=== PATIENT | male | born 1985 | race Caucasian/White ===

== ENCOUNTER 2019-04-04 09:09 | Emergency (ER) | payer OTHER, MEDICAID, SELFPAY ==
[2019-04-04 09:15] VITALS: BP 113/79; PULSE 65; RESP 16; TEMP 35.8; O2SAT 97; BMI 21.9
--- NOTE | 2019-04-04 09:51 | ED.SKABFB ---
HPI - Skin/Abscess/Foreign Bdy General Chief complaint: Skin/Abscess/Foreign Body Stated complaint: welts on limbs,ankles,shoulders/sev itch x2 days Time Seen by Provider: 04/04/19 09:51 Source: patient Mode of arrival: Ambulatory Limitations: no limitations History of Present Illness HPI narrative: This is a 33-year-old male comes to the emergency department with complaint of welts on his, ankle shoulders that is been itchy for several days. He states symptoms started about . Several more spots have shown up. He states they are very itchy. He does not know what the cause is. He has not any fevers, no chills, no chest pain shortness of breath no nausea vomiting no urinary or GI symptoms. His significant other whom he lives with has not had any symptoms. He has not had any new soaps, exposures. 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 Patient states they are just little red itchy bumps. Related Data Previous Rx's Medication Instructions Recorded hydroxyzine HCl 25 mg PO QID PRN #20 tab 04/04/19 Allergies Allergy/AdvReac Type Severity Reaction Status Date / Time venom-honey bee Allergy Unknown Unverified 09/18/17 13:04 [BEE VENOM (HONEY BEE)] Review of Systems Review of Systems ROS Unobtainable: All systems reviewed & are unremarkable except as noted in HPI and below Exam Narrative Exam Narrative: GENERAL: Alert and oriented x three, thin, well-appearing male in no acute distress. HEENT: Head normocephalic, atraumatic, EOMI, pupils reactive, face symmetric, moist mucous membranes NECK: Supple, full range of motion CARDIOVASCULAR: Regular rate and rhythm without murmurs, rubs or gallops. RESPIRATORY: Breath sounds equal bilaterally, no wheezes rales or rhonchi. ABDOMEN: Soft, nontender. Normoactive bowel sounds all 4 quadrants. No guarding or rebound, rigidity, no mass : No CVA tenderness EXTREMITIES: Normal range of motion, no clubbing or edema. Neurovascularly intact NEUROLOGICAL: Cranial nerves II through XII grossly intact. Moving all extremities SKIN: Warm, dry, no petechiae, patient has several erythematous bumps on his Initial Vital Signs Initial Vital Signs: Vital Signs Temperature 96.5 F L 04/04/19 09:15 Pulse Rate 65 04/04/19 09:15 Respiratory Rate 16 04/04/19 09:15 Blood Pressure 113/79 04/04/19 09:15 Pulse Oximetry 97 04/04/19 09:15 Course Vital Signs Vital signs: Vital Signs - 8 hr 04/04/19 09:15 Temperature 96.5 F L Pulse Rate 65 Respiratory Rate 16 Blood Pressure 113/79 Pulse Oximetry 97 MDM - Skin/Abscess/Foreign Bdy MDM Narrative Medical decision making narrative: Patient appears to have some sort of bites in terms of his rash. 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 Discussed plan for watchful waiting can try hydroxyzine and started Benadryl for the itching we discussed reasons to return emergently and signs and symptoms to watch for. He has already established a visit with primary care on May 13 so his symptoms have not resolved he can follow up with them. Discharge Plan Departure Patient Disposition: Home Clinical Impression: Rash Discharge Date/Time: 04/04/19 10:35 Instructions: DI for Rash Activity Restrictions/Additional Instructions: Follow-up with primary care at your office visit on May 13 if your symptoms have not completely resolved. You may take hydroxyzine as prescribed. This medication can make you sleepy, do not take it with Benadryl. Return to the emergency department for fevers greater 100.4 F, rapidly worsening rash, chest pain, shortness of breath, passing out, persistent vomiting or other new or concerning symptoms. Prescriptions: New hydroxyzine HCl 25 mg tablet 25 mg PO QID PRN (Reason: itching) Qty: 20 RF: 0 Referrals: Cathy Berry ARNP [Primary Care Provider] -
== END 2019-04-04 10:35 | disposition home or self-care (01) ==
PROVIDERS: Emergency Provider Emergency Medicine; PCP Nurse Practitioner
DX: R21 Rash and other nonspecific skin eruption (principal)
CPT/HCPCS: 99282; 99283

== ENCOUNTER 2019-04-24 23:40 | Emergency (ER) | payer OTHER, MEDICAID, SELFPAY ==
--- NOTE | 2019-04-24 23:32 | DI.CT.S_ITS ---
PROCEDURE: CT CERVICAL SPINE WO CON INDICATIONS: trauma TECHNIQUE: Noncontrast 3 mm thick sections acquired from the skull base to the T4 level. Sagittal and coronal reformats were then constructed. For radiation dose reduction, the following was used: automated exposure control, adjustment of mA and/or kV according to patient size. COMPARISON: [facility], CT, C-SPINE WITHOUT CONTRAST, 01/28/2015, 23:32. FINDINGS: Image quality: Diagnostic. Bones: There is a nondisplaced fracture identified involving the right basion, which extends into the foramen magnum and also into the occipital condyle on the right. No additional fractures are evident. The C1 arch appears to be intact. The vertebral body heights throughout the cervical spine are well-maintained. The odontoid is intact. No suspicious osseous lesions or significant degenerative changes are appreciated. Soft tissues: No prevertebral soft tissue swelling. The imaged overlying soft tissues of the neck are within normal limits. IMPRESSION: Nondisplaced right basion fracture with extension into the right occipital condyle. Note: The preliminary report provided by [facility] is concordant with the final report. Dictated by: Bam Campa M.D. on 04/25/2019 at 7:23 Approved by: Bam Campa M.D. on 04/25/2019 at 7:27
--- NOTE | 2019-04-24 23:32 | DI.RAD.S_ITS ---
PROCEDURE: XR CHEST 1V INDICATIONS: intubate TECHNIQUE: One view of the chest was acquired. COMPARISON: None. FINDINGS: Surgical changes and devices: An endotracheal tube is seen along the upper aspect of the airway that is positioned approximately 9.6 cm above the level of the angi. This may be exaggerated by technique. Lungs and pleura: Mild increase attenuation is identified within the left suprahilar region and lobe left suprahilar/mid hilar region on the right. No effusion or definite pneumothorax is appreciated. Mediastinum: Mediastinal contours appear normal. Heart size is normal. Bones and chest wall: No suspicious bony lesions. Overlying soft tissues appear unremarkable. IMPRESSION: Increased attenuation within the perihilar regions (record on left) may represent mild pulmonary edema versus contusion. Dictated by: Bam Campa M.D. on 04/24/2019 at 23:15 Approved by: Bam Campa M.D. on 04/24/2019 at 23:17
--- NOTE | 2019-04-24 23:32 | DI.CT.S_ITS ---
PROCEDURE: CT CHEST ABD PEL W CON INDICATIONS: trauma TECHNIQUE: After the administration of intravenous contrast, 5 mm thick sections acquired from the lung apices to the symphysis. 2.5 mm thick coronal and sagittal reformats were acquired. Additional 7 mm thick coronal maximum intensity projection (MIP) reformats acquired through the lungs. Optional 10-minute delayed imaging may be performed from the kidneys to the bladder. For radiation dose reduction, the following was used: automated exposure control, adjustment of mA and/or kV according to patient size. COMPARISON: None. FINDINGS: Image quality: Diagnostic. CHEST: Lungs: Mild areas of pulmonary consolidation are most pronounced within the posterior left lower lobe. There is no effusion or pneumothorax. An endotracheal tube is identified within the upper trachea. Mediastinum: No mediastinal hematomas. Heart size is normal. No pericardial effusion. Thoracic aorta and pulmonary arteries demonstrate normal size and enhancement. No mediastinal or hilar adenopathy. Esophagus is normal in caliber. There may be a small hiatal hernia. Chest wall and bones: No rib fractures. The vertebral body heights are well-maintained. No compression fractures are evident. No subcutaneous emphysema. No axillary or supraclavicular adenopathy. Thyroid gland is not enlarged. ABDOMEN: Solid organs: Liver is normal in size and enhancement, without lacerations. Gallbladder is not enlarged or inflamed. Biliary system is non-dilated. Pancreas enhances normally, without transection. Spleen is normal in size and enhancement, without lacerations. No adrenal hematomas. Both kidneys enhance normally, without hydronephrosis or lacerations. There is at least a single 4 mm nonobstructing mid left renal calculus. Peritoneum and bowel: No free fluid or air. There may be a small hiatal hernia. Image loops are nondilated. However, there is mild wall thickening involving multiple small bowel loops within the left midabdomen. There is a questionable area of intussusception (image 27, series 7 and image 92, series 6). No loculated fluid collections. Nodes and vessels: No retroperitoneal or mesenteric adenopathy. Aorta and inferior vena cava are normal in size and enhancement. Bones: No acute fractures or suspicious osseous lesions. PELVIS: Genitourinary: Bladder wall thickness is normal. Miscellaneous: No inguinal hernias or adenopathy. No free fluid or loculated fluid collections. Bones: Pelvic ring and hip joints appear intact. No suspicious osseous lesions were acute pelvic fractures. IMPRESSION: 1. Patchy areas of atelectasis versus pulmonary contusion. No pneumothorax. 2. No evidence of solid organ laceration or contusion. 3. Nonspecific mild wall thickening involving left upper quadrant small bowel loops. The possibility of a small bowel contusion is difficult to exclude. Enteritis may have this appearance. There is questionable jejunojejunal intussusception. This probably is transient and of doubtful clinical significance. 4. Small hiatal hernia. Note: The preliminary report provided by [facility] is concordant with the final report. Dictated by: Bam Campa M.D. on 04/25/2019 at 7:13 Approved by: Bam Campa M.D. on 04/25/2019 at 7:21
--- NOTE | 2019-04-24 23:32 | DI.RAD.S_ITS ---
PROCEDURE: XR PELVIS 1-2V INDICATIONS: trauma TECHNIQUE: 1 view(s) of the pelvis acquired. COMPARISON: None. FINDINGS: Bones: No displaced pelvic fractures are identified. No obvious dislocations are appreciated. Joint spaces are well-maintained. Soft tissues: Visualized bowel gas pattern is normal. No suspicious soft tissue calcifications. IMPRESSION: No displaced pelvic fractures are appreciated. If there is high clinical concern for an acute pelvic fracture, a pelvic CT is recommended for further evaluation. Dictated by: Bam Campa M.D. on 04/24/2019 at 22:46 Approved by: Bam Campa M.D. on 04/24/2019 at 22:47
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
--- NOTE | 2019-04-24 23:38 | DI.CT.S_ITS ---
PROCEDURE: CT FACIAL BONES WO CON INDICATIONS: trauma TECHNIQUE: Noncontrast 2.5 mm thick axial images acquired from the mandible through the frontal sinuses, with coronal and sagittal reformatting. For radiation dose reduction, the following was used: automated exposure control, adjustment of mA and/or kV according to patient size. COMPARISON: None. FINDINGS: Image quality: Excellent. Bones and teeth: Again, there is a nondisplaced fracture identified involving the right basion and right occipital condyle involving the base of the skull. No additional acute fractures are appreciated. Orbital nelson are intact. Sinus nelson show no fracture or deformity. Nasal bones and septum are intact. Visualized portions of the mandible demonstrate no fractures or subluxation. Zygomatic arches are intact. Pterygoid plates are intact. Visualized portions of the skull base and auditory canals are intact. Sinuses: Paranasal sinuses are aerated, without fluid levels, mucosal thickening, or mucoceles. Mastoid air cells are aerated. There may be mild mucosal thickening involving the nasal turbinates and inferior ethmoid air cells. Soft tissues: No edema, masses, or fluid collections. No enlarged lymph nodes. No soft tissue lacerations or debris. An endotracheal tube is incidentally noted. IMPRESSION: 1. Right basion/occipital condyle fracture. 2. No facial bone fractures. Note: The preliminary report provided by [facility] is concordant with the final report. Dictated by: Bam Campa M.D. on 04/25/2019 at 7:27 Approved by: Bam Campa M.D. on 04/25/2019 at 7:29
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
[2019-04-25 00:01] LABS: Add Manual Diff / Slide Review NO; Basophils Absolute Auto 0 /uL (0-100); Basophils Percent Auto 0.2 % (0-2); Eosinophils Absolute Auto 200 /uL (0-450); Eosinophils Percent Auto 1.9 % (2-4); Hematocrit 46.1 % (41-53); Hemoglobin 15.6 g/dL (13.5-17.5); Lymphocytes Absolute Auto 1800 /uL (1100-4500); Lymphocytes Percent Auto 16.4 % (25-40); Mean Corpuscular HGB Conc 33.8 % (30-36); Mean Corpuscular Volume 88.6 fL (80-100); Monocytes Absolute Auto 500 /uL (0-900); Monocytes Percent Auto 4.9 % (3-14); Neutrophils Absolute Auto 8600 /uL (1500-7000); Neutrophils Percent Auto 76.6 % (50-75); Platelet Count 213 X10^3/uL (150-400); Red Cell Distribution Width 13.5 % (11.6-14.8); White Blood Cell Count 11.2 X10^3/uL (4.5-11.0)
[2019-04-25 00:07] LABS: Prothrombin Time 11.4 SECONDS (10.1-12.7)
[2019-04-25 00:09] LABS: PTT Partial Thromboplastin Tim 29 SECONDS (26.4-36.2)
[2019-04-25 00:12] LABS: Alanine Aminotransferase 89 IU/L (<50); Albumin 4.8 g/dL (3.5-5.0); Albumin Globulin Ratio 1.7 (1.0-2.8); Alkaline Phosphatase 90 U/L (38-126); Amylase 122 U/L (30-110); Aspartate Aminotransferase 96 IU/L (17-59); BUN Creatinine Ratio 18.8 (6-22); Bilirubin Total 0.8 mg/dL (0.2-1.3); Blood Urea Nitrogen 15 mg/dL (9-20); Calcium 8.8 mg/dL (8.4-10.2); Carbon Dioxide 21 mmol/L (22-32); Chloride 109 mmol/L (98-107); Estimated Glomerular Filt Rate > 60.0 mL/min (>60); Ethanol (ETOH) 294 mg/dL; Globulin 2.8 g/dL (1.7-4.1); Glucose 136 mg/dL (70-100); HEMOLYSIS 29 (0-50); Lipase 565 U/L (23-300); Potassium 3.6 mmol/L (3.4-5.1); Sodium 145 mmol/L (137-145); Total Protein 7.6 g/dL (6.3-8.2)
--- NOTE | 2019-04-25 00:46 | PC.NURSE ---
See paper charting for meds and VS and interventions.
[2019-04-25 00:47] LABS: PCO2 ABG 52.6 mmHg (35-45)
[2019-04-25 00:48] LABS: Fractionated Inspired Oxygen 100; HCO3 ABG 24 mmol/L (22-26); Oxygen Saturation ABG 100 % (95-100); PO2 ABG 431 mmHg (80-100); TCO2 ABG 26 mmol/L (21-31)
[2019-04-25 00:49] LABS: pH ABG 7.28 (7.35-7.45)
== END 2019-04-25 00:25 | disposition short-term general hospital (02) ==
PROVIDERS: Emergency Provider Emergency Medicine; PCP Nurse Practitioner
DX: S02.113A Unspecified occipital condyle fracture, initial encounter for closed fracture (principal); S09.90XA Unspecified injury of head, initial encounter; S09.93XA Unspecified injury of face, initial encounter; S19.9XXA Unspecified injury of neck, initial encounter; S39.92XA Unspecified injury of lower back, initial encounter; S39.93XA Unspecified injury of pelvis, initial encounter; V03.90XA Pedestrian on foot injured in collision with car, pick-up truck or van, unspecified whether traffic or nontraffic accident, initial encounter
CPT/HCPCS: 36415; 36600; 70450; 70486; 71045; 71260; 72125; 72170; 74177; 80053; 80320; 82150; 82805; 83690; 85025; 85610; 85730; 94799; 99282; 99291; G0390; J2704

== ENCOUNTER 2019-12-01 16:00 | Outpatient (RCR) | payer OTHER, MEDICAID, SELFPAY ==
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
--- NOTE | 2019-06-16 18:26 | PT-OP ANOTE ---
Called pt via phone at 5pm. Pt stated he did not receive any schedule reminder via text. Reminded pt's of his next appt on 11:15am.
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
--- NOTE | 2019-06-26 13:39 | PT-IP ANOTE ---
Pt no show for appt. Attempt to reach pt via phone but unsuccessful
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
--- NOTE | 2019-08-20 14:35 | PT.OPPOC ---
Physical, Occupational & Speech Therapy At [facility] Current Diagnoses Pain in left knee (08/20/19) Displaced fracture of unspecified tibial tuberosity, initial encounter for closed fracture (08/20/19) Displaced avulsion fracture (chip fracture) of right talus, subsequent encounter for fracture with routine healing (08/20/19) Visit Care Team Role Provider Type JAQUELINE Ordaz Primary Care Provider Advanced Wood Engraver Specialty: Family Practice Address: [address] [place] [address], [id number] Email: [email or web address] Attending Provider Non-Staff Specialty: Medical Address: [address] [place] [address], [place], [address] Email: Plan Of Care PT-OP-T Assessment and Plan Start: 06/09/19 16:48 Freq: Status: Active Protocol: Document 08/20/19 13:15 HH (Rec: 08/20/19 14:35 [email or web address]) Physical Therapy Assessment Goals Oswestry LBP Impairment pt scores 38/100 Addresser Goal (LTG) Pt will score <19 (1-19% impairment) on Oswestry to improve his quality of life in order to return to sport and work safely in pain free. LTG Duration 8 weeks NDI Impairment pt scores ndI 25/50 Correction Goal (LTG) Pt will score <9 (1-19 % impairment) on NDI to have less discomfort at neck region so he could drive with proper head turns LTG Duration 8 weeks vertigo Impairment Pt has possible BPPV Short Term Goal (STG) Pt will be able to tilt his head back/ getting in and out of bed without vertigo. STG Duration 2 weeks return to sports Impairment unable to go to gym Correction Goal (LTG) 08/19: pt has not started d/t ongiong coronavirus Pt will be able to return to gym workout 2-3x/ week for overall strengthening to improve his quality of life LTG Duration 8 weeks work conditioning Impairment unable to work now Short Term Goal (STG) Pt will be able to lift up to 40 lbs object x 5 from floor without any neck/ back pain for work conditioning STG Duration 4 weeks Correction Goal (LTG) 08/19: cont in progress. Pt has ongoing vertigo issue and increase posterior chain tension since removal of cervical collar. Expect pt to be able to back to baseline in October Pt will be able to lift up to 65 lbs object x 5 from floor without any neck/ back pain in order to fully return to work LTG Duration 8 weeks FAAM Impairment pt scores for FAAM 29 and 0 for sports Short Term Goal (STG) Pt will score >50 (20-39% impairment) on FAAM to improve his quality of life and overall mobility. STG Duration 6 weeks Addresser Goal (LTG) 08/19 goal met: pt scores 67 on FAAM Pt will score >67 (1-19% impairment) on FAAM to improve his quality of life and overall mobility. LTG Duration 12 weeks LEFS Impairment Pt scores 24 for LEFS Short Term Goal (STG) Pt will score >48 (20-39% impairment) on LEFS to improve his quality of life and overall mobility. STG Duration 6 weeks Addresser Goal (LTG) 08/19 : cont in progress. 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 LTG Duration 12 weeks Progress Towards Goals Progress Towards Goals Progressing Toward Goals Assessment Summary Assessment Pt has removed his cervical collar since 07/31 and he regained 80% of neck ROM at this point. He also reports improved vertigo symptoms after Lisa manuever from last treatment. Educated pt to add cervical ext and flex for cat camel, standing toe test to increase his posterior chain neural flexibility. Pt also reports reduced tingling and numbness sensation from his feet. Explained pt that future PT visit with focus on work hardening and overall cardiomuscular training. Expect pt to return to work somewhere in October. Pt will cont benefit from skilled therapy to improve his overall strength and mobility so he could return to his workout routine and work. Physical Therapy Plan Frequency and Duration Frequency of Treatment 1x/Week Duration of Treatment 8 weeks Plan of Care Start Date 08/20/19 Plan of Care End Date 10/19/19 Next Visit Focus/Plan Next Note Type Treatment Note Next Visit Plan check post lisa tolerance. OA mob cervical and scap mob in prone trunk stabilization posterior chain glide. overall strengthening Plan of Care Dates Plan of Care Start Date 08/20/19 Plan of Care End Date 10/19/19 Electronically Signed by: Jovani Ruggiero, PT 08/20/19 [id number] Please Sign and Return: I have reviewed this Plan of Care and certify that the skilled therapy services above are required to meet the patient?s needs. Physician Signature Date Printed Name and Credentials Clinical Instructor Signature Printed Name and Credentials
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
--- NOTE | 2019-09-01 16:25 | PT.OTN ---
Current Diagnoses Pain in left knee (08/25/19) Displaced fracture of unspecified tibial tuberosity, initial encounter for closed fracture (08/25/19) Displaced avulsion fracture (chip fracture) of right talus, subsequent encounter for fracture with routine healing (08/25/19) Physical Therapy Treatment Note PT-OP-T Assessment and Plan Start: 06/09/19 16:48 Freq: Status: Active Protocol: Document 09/01/19 16:25 HH (Rec: 09/01/19 16:25 HH [email or web address]) Physical Therapy Plan Hold Physical Therapy Reason For Hold Hold PT since this clinic will close from tomorrow until further notice d/t coronavirus . Provided online HEP for pt today to improve functional mobility and strength. Will follow up after with pt via phone for check up.
--- NOTE | 2019-11-10 12:31 | PT.OPPOC ---
Physical, Occupational & Speech Therapy At [facility] Current Diagnoses Pain in left knee (11/10/19) Displaced fracture of unspecified tibial tuberosity, initial encounter for closed fracture (11/10/19) Displaced avulsion fracture (chip fracture) of right talus, subsequent encounter for fracture with routine healing (11/10/19) Visit Care Team Role Provider Type JAQUELINE Ordaz Primary Care Provider Advanced Legal Billing Specialist Specialty: Family Practice Address: [address] [place] [address], [id number] Email: [email or web address] Attending Provider Non-Staff Specialty: Medical Address: [address] [place] [address], [place], [address] Email: Plan Of Care PT-OP-T Assessment and Plan Start: 06/09/19 16:48 Freq: Status: Active Protocol: Document 11/10/19 12:07 (Rec: 11/10/19 12:31 [email or web address]) Physical Therapy Assessment Goals posterior chain mobility Impairment toe touch test =- 12 inches away from floor Jewel Bearing Turner Goal (LTG) Pt will be able to reach ankles for toe touch test to improve his posterior chain mobility in 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 LTG Duration 8 weeks vertigo Impairment Pt has possible BPPV Short Term Goal (STG) Goal met 11/09 Pt is able to getting in and out of bed without vertigo. STG Duration 11/10/19 Group Home Goal (LTG) Pt will be able to tilt his back in standing/ supine position without vertigo or discomfort LTG Duration 8 weeks return to sports Impairment unable to go to gym Group Home Goal (LTG) 11/09: pt has not started d/t ongiong coronavirus Pt will be able to return to gym workout 2-3x/ week for overall strengthening to improve his quality of life LTG Duration 8 weeks work conditioning Impairment unable to work now Short Term Goal (STG) Pt will be able to lift up to 40 lbs object x 5 from floor without any neck/ back pain for work conditioning STG Duration 4 weeks Group Home Goal (LTG) 11/09 : cont in progress for 2 times a wekk. Pt has ongoing increase posterior chain tension and LBP that limits his activity level for work and sports related acitvities. Pt will be able to fully return to work 40 hrs a week without back pain LTG Duration 8 weeks gait Impairment SPC for stair climbing in the morning Group Home Goal (LTG) Pt will not need to use SPC for stair climbing in the morning LTG Duration 11/10/19 Progress Towards Goals Progress Towards Goals Progressing Toward Goals Assessment Summary Assessment pt's last visit = 08/31 due to clinic closure for COVID 19 outbreak. Pt has shown significant improvements since initial evaluation who does not vertigo normally except laying in supine with neck extension/ standing neck extension. However, he has new onset of significant and constant low back pain that currently limits his activity level for work. pt presents with overall limited T/S and posterior chain mobility upon reassessment today which places his lumbar region unstable. Pt will cont benefit from skilled therapy to improve his lumbar spine stability and hip and t/s mobility in order for him to function in symptoms free at work. Physical Therapy Plan Frequency and Duration Frequency of Treatment 2x/Week Duration of Treatment 8 weeks Plan of Care Start Date 11/10/19 Plan of Care End Date 01/09/20 Therapeutic Interventions Therapeutic Interventions Balance Training,Gait Training ,Home Exercise Program,Joint Mobilizations,Manual Therapy, Neuromuscular Re-education, Patient/Caregiver Education, Self-Care/Home Management, Sensory Integration,Soft Tissue Mobilization,Taping, Therapeutic Activities, Therapeutic Exercises Next Visit Focus/Plan Next Note Type Treatment Note Next Visit Plan check BPPV t/s mobility hip mobility (adducotrs, hamstrings) lumbar stability Plan of Care Dates Plan of Care Start Date 11/10/19 Plan of Care End Date 01/09/20 Electronically Signed by: Jovani Ruggiero, PT 11/10/19 [id number] Please Sign and Return: I have reviewed this Plan of Care and certify that the skilled therapy services above are required to meet the patient?s needs. Physician Signature Date Printed Name and Credentials Clinical Instructor Signature Printed Name and Credentials
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
== END 2019-12-02 10:02 ==
LOC: PHYS 16:00
PROVIDERS: PCP Nurse Practitioner; Visit Provider Nurse Practitioner
DX: S92.151D Displaced avulsion fracture (chip fracture) of right talus, subsequent encounter for fracture with routine healing (principal); S82.153A Displaced fracture of unspecified tibial tuberosity, initial encounter for closed fracture; M25.562 Pain in left knee
CPT/HCPCS: 95992; 97010; 97110; 97140; 97163

== ENCOUNTER → 2020-05-16 12:37 | Outpatient (CLI) | payer OTHER, MEDICAID, SELFPAY ==
[2020-05-16 13:09] LABS: COVID19 -Nasal RAPID POSITIVE (Negative)
== END ==
PROVIDERS: PCP Family Medicine; Visit Provider Physician Assistant
DX: U07.1 COVID-19 (principal)
CPT/HCPCS: 87635

== ENCOUNTER → 2020-07-19 09:14 | Outpatient (CLI) | payer OTHER, MEDICAID, SELFPAY ==
[2020-07-19 10:18] LABS: COVID19 -Nasal RAPID Negative (Negative)
== END ==
PROVIDERS: PCP Family Medicine; Visit Provider Surgery
DX: Z20.822 Contact with and (suspected) exposure to COVID-19 (principal); Z01.812 Encounter for preprocedural laboratory examination
CPT/HCPCS: 87635; C9803

== ENCOUNTER 2020-07-20 08:17 | Day surgery (SDC) | payer OTHER, MEDICAID, SELFPAY ==
[2020-07-20] VITALS (10 sets, daily range): BP systolic 108–124; BP diastolic 61–74; PULSE 63–92; RESP 15–18; TEMP 35.9–36.6; O2SAT 93–97; BMI 22.4
--- NOTE | 2020-07-20 07:55 | PM.PREOP ---
Pre-operative Note COVID-19 COVID-19 status: Negative Result date/Date tested (Pos, Neg/Pending): 07/19/20 Interval Note History & Physical reviewed/Exam performed by Physician: Yes Changes to H&P: No
[2020-07-20] MEDS: LACTATED RINGERS 1,000 ML 100 ML IV ×2 (08:56→10:37)
[2020-07-20] MEDS: CEFAZOLIN 2 GM/100 ML FROZ.PIGGY IV (09:45)
--- NOTE | 2020-07-20 10:13 | SUR.OPER ---
Supine on padded OR bed, head on pillow, arms secured on padded arm boards at <90 degrees abduction, legs uncrossed, safety belt at thigh, tape over blanket over lower legs.
[2020-07-20] MEDS: BUPIVACAINE 0.5% W/ EPI (PF) 30 ML VIAL INJ (10:16)
[2020-07-20] MEDS: BUPIVACAINE LIPOSOME 266 MG/20 ML VIAL INJ (10:30)
--- NOTE | 2020-07-20 11:05 | PM.OP.1 ---
Operative Date/Time/Diagnoses Date of procedure: 07/20/20 Time of procedure: 11:05 Pre-op diagnosis: Ventral incisional hernia Post-op diagnosis: same Procedure & Clinicians Procedure: open ventral hernia repair with mesh Same procedure as scheduled: Yes Indications: Ventral hernia; pain, risk of incarceration Surgeon: Lexie Shah Click Yes if Unassisted: Yes Anesthesia Type: General Operative Notes Findings: 2cm x 2cm midline incisional hernia Specimen(s): other (hernia sac) Prosthetic devices, grafts, tissues, transplants, or devices: Bard Ventral patch 6.4cm Estimated Blood Loss (mL): 1 Procedure in detail: The patient was brought to the operating room, placed supine on the operating table, and sequential compression devices were placed on both legs and turned on. Appropriate perioperative antibiotics were given. General anesthesia was induced by the anesthesiologist and the patient was intubated. The abdomen was then prepped and draped in sterile fashion, and a surgical time-out was conducted. At this point local anesthetic was injected using 0.25% Marcaine with epi, at the site of the planned incision. A 6cm vertical incision was then made in the area of the prior incisional scar in the vertical midline superior to the umbilicus. Dissection was then carried down through the dermis and subcutaneous tissue, until the hernia sac was encountered. I dissected circumferentially around the hernia sac, and identified the fascial defect. The defect was 2cm x 2cm, and single. The fascia was interrogated superior and inferior to the defect, and was well intact. Because the rest of the wall was well healed and intact, and the hernia was 2cm , the decision was made to repair the defect with a preperitoneal patch. The preperitoneal space was dissected circumferentially for a good 3-4cm overlap in each direction. There were relatively dense adhesions in all directions, which were taken down to make space for the mesh. There was no exposed bowel in the space. A 6.4cm BARD ventral patch was brought into the field and placed in the preperitoneal position, and secured in four corners with 2-0 PDS. The fascia was infiltrated with local anesthetic for a total of 40mL of 0.5% Marcaine with Epi used for the case. Another 20mL of Exparel was also infiltrated into the fascia in small aliquots circumferentially. The fascia was closed with 0 Vicryl figure of 8's. The subdermal layer was closed with 3-0 vicryl, incorporating the anterior fascia to close the space. The skin was closed with running subcuticular 4-0 Monocryl, and sealed with dermabond. This concluded the procedure. An abdominal binder with a stack of 4x4's over the surgical wound was placed after the Dermabond was dry.The patient was awakened from anesthesia and extubated. He was transferred onto his hospital [facility]. The patient was then transferred to the postanesthesia care unit in stable condition. He tolerated the procedure well. Needle sponge and instrument counts were correct x2 at the end of the case. Complications: none Post-operative Condition: stable Disposition: PACU
[2020-07-20] MEDS: ONDANSETRON 4 MG/2 ML INJ IV (11:39)
[2020-07-20] MEDS: OXYCODONE/ACETAMINOPHEN 5/325 TABLET 1 TAB PO (11:46)
== END 2020-07-20 12:20 | disposition home or self-care (01) ==
PROVIDERS: PCP Family Medicine; Referring Provider Surgery; Visit Provider Surgery
PROC: (CPT 49560; principal; 2020-07-20 09:30)
DX: K43.9 Ventral hernia without obstruction or gangrene (principal); Z86.718 Personal history of other venous thrombosis and embolism
CPT/HCPCS: 49560; 49568; C1781; C9290; J0330; J0690; J1100; J2405; J2704; J3010

== ENCOUNTER 2020-12-23 22:56 | Observation (INO) | payer OTHER, SELFPAY ==
[2020-12-23 22:56] VITALS: BP 146/108; PULSE 111; RESP 24; TEMP 36.2; O2SAT 99
[2020-12-23 23:00] VITALS: BP 148/108; PULSE 114; RESP 18; TEMP 36.2; O2SAT 99
[2020-12-23 23:13] LABS: Add Manual Diff / Slide Review NO; Basophils Absolute Auto 0 /uL (0-100); Basophils Percent Auto 0.4 % (0-2); Eosinophils Absolute Auto 100 /uL (0-450); Eosinophils Percent Auto 0.8 % (2-4); Lymphocytes Absolute Auto 1900 /uL (1100-4500); Lymphocytes Percent Auto 29.8 % (25-40); Mean Corpuscular HGB Conc 33.4 % (30-36); Mean Corpuscular Hemoglobin 29.1 PG (26-34); Mean Corpuscular Volume 87.1 fL (80-100); Monocytes Absolute Auto 400 /uL (0-900); Monocytes Percent Auto 5.9 % (3-14); Neutrophils Absolute Auto 4100 /uL (1500-7000); Neutrophils Percent Auto 63.1 % (50-75); Platelet Count 203 X10^3/uL (150-400); Red Blood Cell Count 5.17 X10^6/uL (4.5-5.9); Red Cell Distribution Width 13.5 % (11.6-14.8); White Blood Cell Count 6.5 X10^3/uL (4.5-11.0)
[2020-12-23 23:15] VITALS: BP 152/78; PULSE 110; RESP 16; O2SAT 97
[2020-12-23] MEDS: KETOROLAC 30 MG/ML VIAL 15 MG IV (23:20)
[2020-12-23 23:21] LABS: Alanine Aminotransferase 47 IU/L (<50); Albumin 4.8 g/dL (3.5-5.0); Albumin Globulin Ratio 1.5 (1.0-2.8); Alkaline Phosphatase 103 U/L (38-126); Aspartate Aminotransferase 35 IU/L (17-59); BUN Creatinine Ratio 17.3 (6-22); Bilirubin Total 0.4 mg/dL (0.2-1.3); Blood Urea Nitrogen 14 mg/dL (9-20); Calcium 8.7 mg/dL (8.4-10.2); Carbon Dioxide 22 mmol/L (22-32); Chloride 106 mmol/L (98-107); Estimated Glomerular Filt Rate > 60.0 mL/min (>60); Globulin 3.2 g/dL (1.7-4.1); Glucose 154 mg/dL (70-100); HEMOLYSIS < 15 (0-50); Potassium 3.8 mmol/L (3.4-5.1); Sodium 141 mmol/L (137-145)
[2020-12-23] MEDS: HYDROMORPHONE 0.5 MG INJ IV (23:21)
[2020-12-23] MEDS: CEFAZOLIN 1 GM VIAL 2 GM IV (23:21)
[2020-12-23] MEDS: TET,DIPH,PERTUSS(ACELL),VAC/PF 0.5 ML SYRINGE IM (23:22)
[2020-12-23 23:30] VITALS: BP 132/78; PULSE 114; RESP 18; O2SAT 99
[2020-12-23] MEDS: TRANEXAMIC ACID 1,000 MG VIAL 2000 MG INJ (23:40)
[2020-12-23] MEDS: HYDROMORPHONE 1 MG INJ (23:40)
[2020-12-23 23:45] VITALS: BP 100/58; PULSE 90; RESP 14; O2SAT 97
[2020-12-23] MEDS: ONDANSETRON 4 MG/2 ML INJ (23:50)
[2020-12-24] VITALS (22 sets, daily range): BP systolic 79–127; BP diastolic 45–93; PULSE 69–92; RESP 14–18; TEMP 36.5–36.8; O2SAT 97–100; BMI 25.5
[2020-12-24 00:17] LABS: COVID19 - ADMIT (NP swab/PCR) Negative (Negative)
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
--- NOTE | 2020-12-24 01:04 | PC.NURSE ---
Late entry: Pt to room 10 where dressing was applied, IV established, provider eval. Initially bleeding was felt to be well controlled w/ pressure. 2320 noted breakthrough bleeding in upper dressing, Dr. Kumar to bedside where wound was explored and new dressing applied. Pt continued to bleed. Provider returned to bedside at 2330 and placed mattress stiches as well as TXA in wound then IVP by provider. Surgeon called STAT, OR called STAT, Lab called for STAT 2 Units paced cells. Pt remained a/o x 4 with easy work of breathing and GCS 15. Tourniquet applied w/ provider however difficult to obtain stasis as wound was high and close to axilla. 2345 Pt became drowsy, airway remained patent but was responsive only to deep stimulus. Noted comparitive bradycardia (114 to 78) Pt moved to room 2. Mass Transfusion protocol initiated. [id number]: Pt intubated by Dr. Kumar w/ bilateral breath sounds noted as well as no sound over gastric area. #18 Fr OG placed. Anesthsia and Dr. Brown present. Blood infusing. Plan STAT OR for repair. Please see paper for medications given / not signed off in AUG. Report to Anesthsia and OR team. Transported w/ RN, Anesthsia, BUNCHER [facility] and RT to OR 4. Assisted in transfer to OR stretcher.
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
[2020-12-24 01:48] LABS: Add Manual Diff / Slide Review NO; Basophils Absolute Auto 0 /uL (0-100); Basophils Percent Auto 0.6 % (0-2); Eosinophils Absolute Auto 100 /uL (0-450); Eosinophils Percent Auto 0.9 % (2-4); Hematocrit 37.8 % (41-53); Hemoglobin 12.8 g/dL (13.5-17.5); Lymphocytes Absolute Auto 1400 /uL (1100-4500); Lymphocytes Percent Auto 22.6 % (25-40); Mean Corpuscular HGB Conc 33.9 % (30-36); Mean Corpuscular Hemoglobin 29.7 PG (26-34); Mean Corpuscular Volume 87.6 fL (80-100); Monocytes Absolute Auto 600 /uL (0-900); Monocytes Percent Auto 9.5 % (3-14); Neutrophils Absolute Auto 4200 /uL (1500-7000); Neutrophils Percent Auto 66.4 % (50-75); Platelet Count 149 X10^3/uL (150-400); Red Blood Cell Count 4.32 X10^6/uL (4.5-5.9); Red Cell Distribution Width 14.2 % (11.6-14.8); White Blood Cell Count 6.4 X10^3/uL (4.5-11.0)
[2020-12-24 01:54] LABS: INR 1.1 (0.9-1.3); Prothrombin Time 12.4 SECONDS (10.1-12.7)
--- NOTE | 2020-12-24 01:55 | SUR.OPER ---
Patient arrived direct to OR room 4 from ER monitored, ETT manual ambu bagged by RT. PRBC running. FFP x 2 units received by anesthesia and reviewed by the YARN INSPECTOR, see anesthesia record for VS.
[2020-12-24 02:38] LABS: Fractionated Inspired Oxygen 40; HCO3 ABG 24 mmol/L (22-26); Oxygen Saturation ABG 99 % (95-100); PCO2 ABG 45.2 mmHg (35-45); PO2 ABG 144 mmHg (80-100); TCO2 ABG 25 mmol/L (21-31); pH ABG 7.33 (7.35-7.45)
[2020-12-24 02:41] LABS: Ethanol (ETOH) 172 mg/dL
--- NOTE | 2020-12-24 02:52 | SUR.PHASEI ---
0245 Patient waking and attempting to sit up; respiratory therapy at bedside; anesthesia to bedside; patient extubated without difficulty by RT. Placed patient on oxygen via nasal cannula at 7 liters. Oxygen saturation 100% on 7 liters. Oriented patient to PACU and situation. V/U. Patient cooperative. Soft restraints removed.
--- NOTE | 2020-12-24 02:54 | SUR.PHASEI ---
VSS. Decreased oxygen from 7 liters to 4 liters via nasal cannula. Oxygen saturation 100% on 4 liters.
[2020-12-24 03:01] LABS: Ur Creatinine 20 (Normal); Ur Specific Gravity 1.025 (Normal); Urine pH 4 (Normal)
[2020-12-24 03:02] LABS: UR Morphine/Opiate cutoff 300 Negative (Negative); Urine Amphetamines Negative (Negative); Urine Barbiturates Negative (Negative); Urine Benzodiazepines Negative (Negative); Urine Cocaine Positive (Negative); Urine MDMA Negative (Negative); Urine Methadone Negative (Negative); Urine Methamphetamines Negative (Negative); Urine Oxycodone Positive (Negative); Urine Phencyclidine Negative (Negative); Urine Tetrahydrocannabinol Negative (Negative); Urine Tricyclic Antidepressant Negative (Negative)
--- NOTE | 2020-12-24 03:13 | SUR.PHASEI ---
transferred patient to room 222 in stable condition. All belongings with patient.
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
--- NOTE | 2020-12-24 05:51 | PC.NURSE ---
Pt. admitted to room 222 from PACU @ 0320 still very drowsy & sleepy. Was not able to educate & orient him to his room. Will monitor & cont. POC.
[2020-12-24 06:56] LABS: Add Manual Diff / Slide Review NO; Basophils Absolute Auto 0 /uL (0-100); Basophils Percent Auto 0.2 % (0-2); Eosinophils Absolute Auto 200 /uL (0-450); Eosinophils Percent Auto 2.6 % (2-4); Hematocrit 38.9 % (41-53); Hemoglobin 13.2 g/dL (13.5-17.5); Lymphocytes Absolute Auto 1600 /uL (1100-4500); Lymphocytes Percent Auto 18.6 % (25-40); Mean Corpuscular Hemoglobin 29.8 PG (26-34); Mean Corpuscular Volume 87.7 fL (80-100); Monocytes Absolute Auto 800 /uL (0-900); Monocytes Percent Auto 9.5 % (3-14); Neutrophils Absolute Auto 5800 /uL (1500-7000); Neutrophils Percent Auto 69.1 % (50-75); Platelet Count 145 X10^3/uL (150-400); Red Blood Cell Count 4.44 X10^6/uL (4.5-5.9); White Blood Cell Count 8.5 X10^3/uL (4.5-11.0)
[2020-12-24 07:07] LABS: BUN Creatinine Ratio 18.6 (6-22); Blood Urea Nitrogen 13 mg/dL (9-20); Calcium 8.1 mg/dL (8.4-10.2); Carbon Dioxide 25 mmol/L (22-32); Chloride 110 mmol/L (98-107); Estimated Glomerular Filt Rate > 60.0 mL/min (>60); Glucose 94 mg/dL (70-100); HEMOLYSIS < 15 (0-50); Potassium 3.6 mmol/L (3.4-5.1); Sodium 141 mmol/L (137-145)
[2020-12-24] MEDS: CELECOXIB 100 MG CAPSULE 200 MG PO (09:42)
[2020-12-24] MEDS: HYDROCODONE/ACET 10/325 TABLET 1 TAB PO (09:42)
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
--- NOTE | 2020-12-24 14:19 | PC.NURSE ---
Patient seen by surgeon today and ready for discharge. Miranda was dc'd intact and patient able to void without difficulty. Patient tolerating meals, pain managed with pain medications as ordered. VSS. Dressing to arm remains CDI, denies numbness or tingling, moving all extremitites. Patient's brother is here to pick him up and help him with care at home as needed. Discharge instructions reviewed with patient and his brother. IV's (3) removed and tele off. Patient states understanding and has no further questions or concerns at this time.
--- NOTE | 2020-12-24 14:22 | PC.NURSE ---
Addendum entered by Mauricio West R.N. 12/24/20 14:39: Patient without questions or concerns, states understanding of follow up care, escorted out via wheelchair with his clothes by [employer]ATOR to discharge to home with his brother. Original Note: Patient instructed to confirm/schedule follow up with Dr. Brown in 7 days. Instructed to call surgeon with questions or concerns, notify surgeon with any signs of infection, numbness, tingling or bleeding- instructed to seek emergent care for return or worsening symptoms.
== END 2020-12-24 14:40 | disposition home or self-care (01) | DRG 364 ==
LOC: ED 12-24 02:23 → AC 12-24 06:55
PROVIDERS: Anesthesiology; Admitting Provider Surgery; Emergency Provider Emergency Medicine; PCP Family Medicine; Referring Provider Emergency Medicine; Visit Provider Surgery
PROC: (CPT 12035; principal; 2020-12-24 00:20)
DX: S41.111A Laceration without foreign body of right upper arm, initial encounter (principal); S51.811A Laceration without foreign body of right forearm, initial encounter; X99.1XXA Assault by knife, initial encounter; T79.4XXA Traumatic shock, initial encounter; Z20.822 Contact with and (suspected) exposure to COVID-19; Z87.891 Personal history of nicotine dependence
CPT/HCPCS: 12035; 12001; 13121; 13122 ×4; 36415; 36430; 36600; 80048; 80053; 80305; 80320; 82805; 85025; 85610; 86850; 86900; 86901; 86927; 87635; 90471; 94002; 94799; 96374; 96375; 99219; 99284; 99291; 99292; C9803; G0378; P9016; 90715; G0390; J0690; J1170; J1885; J2250; J2405; J2704; J3010

== ENCOUNTER → 2021-04-03 15:37 | Outpatient (ROUT) | payer OTHER, SELFPAY ==
[2021-01-05 14:09] VITALS: PULSE 79; RESP 16; O2SAT 99; BMI 25.5
[2021-04-03 16:17] LABS: COVID19 -Nasal RAPID Negative (Negative)
== END ==
PROVIDERS: PCP Family Medicine; Visit Provider Family Medicine
DX: Z20.822 Contact with and (suspected) exposure to COVID-19 (principal)
CPT/HCPCS: 87635

== ENCOUNTER → 2021-06-23 13:19 | Outpatient (ROUT) | payer OTHER, SELFPAY ==
[2021-01-05 14:09] VITALS: PULSE 79; RESP 16; O2SAT 99; BMI 25.5
[2021-06-23 13:38] LABS: COVID19 -Nasal RAPID POSITIVE (Negative)
== END ==
PROVIDERS: PCP Family Medicine; Visit Provider Family Medicine
DX: U07.1 COVID-19 (principal); Z20.822 Contact with and (suspected) exposure to COVID-19
CPT/HCPCS: 87635

== ENCOUNTER 2022-06-05 10:20 | Emergency (ER) | payer OTHER, SELFPAY ==
[2021-01-05 14:09] VITALS: PULSE 79; RESP 16; O2SAT 99; BMI 25.5
[2022-06-05 10:28] VITALS: BP 113/77; PULSE 74; RESP 16; TEMP 36.7; O2SAT 94; BMI 27.0
[2022-06-05 10:50] LABS: Add Manual Diff / Slide Review NO; Basophils Absolute Auto 0 /uL (0-100); Basophils Percent Auto 0.2 % (0-2); Eosinophils Absolute Auto 300 /uL (0-450); Eosinophils Percent Auto 5.3 % (2-4); Hematocrit 43.2 % (41-53); Hemoglobin 14.8 g/dL (13.5-17.5); Lymphocytes Absolute Auto 1400 /uL (1100-4500); Lymphocytes Percent Auto 22.4 % (25-40); Mean Corpuscular HGB Conc 34.2 % (30-36); Mean Corpuscular Hemoglobin 29.3 PG (26-34); Mean Corpuscular Volume 85.8 fL (80-100); Monocytes Absolute Auto 500 /uL (0-900); Neutrophils Absolute Auto 3900 /uL (1500-7000); Neutrophils Percent Auto 63.1 % (50-75); Platelet Count 200 X10^3/uL (150-400); Red Blood Cell Count 5.04 X10^6/uL (4.5-5.9); Red Cell Distribution Width 12.9 % (11.6-14.8); White Blood Cell Count 6.1 X10^3/uL (4.5-11.0)
[2022-06-05 10:57] LABS: Prothrombin Time 11.3 SECONDS (10.1-12.7)
[2022-06-05 10:59] LABS: PTT Partial Thromboplastin Tim 30 SECONDS (26-36)
[2022-06-05 11:01] LABS: Alanine Aminotransferase 50 IU/L (<50); Albumin 4.4 g/dL (3.5-5.0); Albumin Globulin Ratio 1.2 (1.0-2.8); Alkaline Phosphatase 109 U/L (38-126); Aspartate Aminotransferase 33 IU/L (17-59); BUN Creatinine Ratio 24.7 (6-22); Bilirubin Total 0.4 mg/dL (0.2-1.3); Blood Urea Nitrogen 18 mg/dL (9-20); Calcium 9.3 mg/dL (8.4-10.2); Carbon Dioxide 25 mmol/L (22-32); Chloride 104 mmol/L (98-107); Estimated Glomerular Filt Rate > 60 mL/min (>60); Globulin 3.6 g/dL (1.7-4.1); Glucose 125 mg/dL (70-100); HEMOLYSIS < 15 (0-50); Potassium 4.2 mmol/L (3.4-5.1); Sodium 138 mmol/L (137-145)
[2022-06-05 11:24] LABS: Influenza A - CEPHEID Flu A NEGATIVE (NEGATIVE); Influenza B - CEPHEID Flu B NEGATIVE (NEGATIVE); Respiratory Syncytial Virus Negative (Negative)
[2022-06-05 11:26] LABS: COVID-19 CEPHEID 4-PLEX PCR Negative (Negative)
[2022-06-05] MEDS: ONDANSETRON 4 MG/2 ML INJ IV (13:38)
[2022-06-05] MEDS: PANTOPRAZOLE 40 MG VIAL 80 MG IV (13:38)
--- NOTE | 2022-06-05 14:57 | ED_ITS ---
HPI - GI Bleed General Chief complaint: GI Bleed Stated complaint: vomiting,black stool x2 days,lower back pain Time Seen by Provider: 06/05/22 14:23 Source: patient Mode of arrival: Ambulatory History of Present Illness HPI Narrative: Patient here with girlfriend complains dark hematemesis/coffee-ground with episode of dark stool. Patient has never had this problem before. Not on any blood thinners not on regular NSAIDs. Patient does not drink alcohol every day. No could be no did in his yesterday patient had no complaints abdominal pain or nausea or vomiting or diarrhea. However he drank about 6 beers on Saturday/, later that night morning lower abdominal discomfort radiating to lower back. No epigastric pain. Denies any history of liver disease. Related Data Home Medications Medication Instructions Recorded Confirmed acetaminophen 650 mg 650 mg PO Q8H PRN Abdominal Pain 01/05/21 06/14/22 tablet,extended release (Tylenol 8 Hour) Previous Rx's Medication Instructions Recorded oxycodone 5 mg tablet See Rx Instructions PO Q6H PRN 12/30/20 pain #20 tabs pantoprazole 40 mg tablet,delayed 40 mg PO DAILY #30 tabs 06/05/22 release (Protonix) Allergies Allergy/AdvReac Type Severity Reaction Status Date / Time adhesive tape Allergy Intermediate Rash Verified 06/14/22 15:17 venom-honey bee Allergy Unknown Verified 06/14/22 15:17 [BEE VENOM (HONEY BEE)] Review of Systems Review of Systems Narrative: GENERAL: negative chills, fatigue, malaise, fever, sweats. HEENT: negative sinus pain, ear pain, sore throat RESPIRATORY: negative dyspnea, cough CARDIOVASCULAR: negative chest pain, palpitations GASTROINTESTINAL: Positive hematemesis/black stool/nausea, vomiting, abdominal pain : negative dysuria, frequency, hematuria MUSCULOSKELETAL: negative muscle or bony pain SKIN: negative rash, skin lesions NEUROLOGIC: negative weakness, numbness ROS Unobtainable: All systems reviewed & are unremarkable except as noted in HPI and below Patient History Medical History Exposure to COVID-19 virus Foot pain (~2018) Fractures (~2019) Hiatal hernia History of DVT of lower extremity History of skull fracture 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 EYES: Pupils equal round No scleral icterus. [place] conjunctiva ENT: Mucous membranes moist. NECK: Trachea midline. CARDIOVASCULAR: Regular rate and rhythm without murmurs RESPIRATORY: Clear to auscultation. Breath sounds equal bilaterally. No wheezes, rales, or rhonchi. GASTROINTESTINAL: Abdomen soft, non-tender, abdomen soft flat nontender no peritoneal signs no pain out of proportion to exam, bowel sounds are present. No CVA tenderness EXTREMITIES: No gross deformities. BACK: No flank tenderness. NEURO: AOx4. SKIN: Warm and dry PSYCH: Not anxious, is cooperative Initial Vital Signs Initial Vital Signs: Vital Signs Temperature 98.0 F 06/05/22 10:28 Pulse Rate 74 06/05/22 10:28 Respiratory Rate 16 06/05/22 10:28 Blood Pressure 113/77 06/05/22 10:28 Pulse Oximetry 94 06/05/22 10:28 Oxygen Delivery Method 06/05/22 10:28 Course Course Course Narrative: No new issues during course of stay Orders Ordered: Discontinued Medications Sodium Chloride (Normal Saline 0.9%) 500 mls @ 1,000 mls/hr IV BOLUS ONE Stop: 06/05/22 15:27 Last Infusion: 06/05/22 16:13 Dose: 0 mls/hr Documented By: Admin: 06/05/22 15:33 Dose: 1,000 mls/hr Documented By: COREY Ondansetron HCl (Ondansetron 4 Mg/2 Ml Inj) 4 mg IV NOW PRN PRN Reason: Nausea And Vomiting Last Admin: 06/05/22 13:38 Dose: 4 mg Documented By: COREY Ondansetron HCl (Ondansetron 4 Mg Odt) 4 mg SL NOW PRN PRN Reason: Nausea And Vomiting Pantoprazole Sodium (Pantoprazole 40 Mg Vial) 80 mg IV NOW ONE Stop: 06/05/22 10:36 Last Admin: 06/05/22 13:38 Dose: 80 mg Documented By: COREY Reevaluation(s) Reevaluation #1: Reviewed results with patient and family. They are reassuring. I did speak with General surgery and outpatient endoscopy appropriate. Protonix started. No black or bloody stools or hematemesis here. Return precautions reviewed with patient and family. They desire discharge home. Time: 16:53 Consultations Consultation #1: Spoke with Dr. Brown, general surgery. Agrees with treatment plan and discharge home and outpatient endoscopy. Time: 16:53 Vital Signs Vital signs: Vital Signs - 8 hr 06/05/22 10:28 Temperature 98.0 F Pulse Rate 74 Respiratory Rate 16 Blood Pressure 113/77 Pulse Oximetry 94 Oxygen Delivery Method Room Air MDM - GI Bleed Lab Data Result diagrams: 06/05/22 10:42 06/05/22 10:42 Labs: Lab Results 06/05/22 06/05/22 06/05/22 Range/Units 10:40 10:42 10:42 WBC 6.1 (4.5-11.0) X10^3/uL RBC 5.04 (4.5-5.9) X10^6/uL Hgb 14.8 (13.5-17.5) g/dL Hct 43.2 (41-53) % MCV 85.8 (80-100) fL MCH 29.3 (26-34) PG MCHC 34.2 (30-36) % RDW 12.9 (11.6-14.8) % Plt Count 200 (150-400) X10^3/uL Neut % (Auto) 63.1 (50-75) % Lymph % (Auto) 22.4 L (25-40) % [place] % (Auto) 9.0 (3-14) % Eos % (Auto) 5.3 H (2-4) % Baso % (Auto) 0.2 (0-2) % Neut # (Auto) 3900 (1803-9996) /uL Lymph # (Auto) 1400 (7951-4425) /uL [place] # (Auto) 500 (0-900) /uL Eos # (Auto) 300 (0-450) /uL Baso # (Auto) 0 (0-100) /uL PT 11.3 (10.1-12.7) SECONDS INR 1.0 (0.9-1.3) APTT 30 (26-36) SECONDS Sodium (137-145) mmol/L Potassium (3.4-5.1) mmol/L Chloride (98-107) mmol/L Carbon Dioxide (22-32) mmol/L BUN (9-20) mg/dL Creatinine (0.66-1.25) mg/dL Estimated GFR (>60) mL/min BUN/Creatinine Ratio (6-22) Glucose (70-100) mg/dL Calcium (8.4-10.2) mg/dL Total Bilirubin (0.2-1.3) mg/dL AST (17-59) IU/L ALT (<50) IU/L Alkaline Phosphatase (38-126) U/L Total Protein (6.3-8.2) g/dL Albumin (3.5-5.0) g/dL Globulin (1.7-4.1) g/dL Albumin/Globulin Ratio (1.0-2.8) SARS-CoV-2 (PCR) Negative (Negative) Influenza A (RT-PCR) Flu a negative (NEGATIVE) Influenza B (RT-PCR) Flu b negative (NEGATIVE) RSV (PCR) Negative (Negative) Blood Type Antibody Screen 06/05/22 06/05/22 Range/Units 10:42 10:42 WBC (4.5-11.0) X10^3/uL RBC (4.5-5.9) X10^6/uL Hgb (13.5-17.5) g/dL Hct (41-53) % MCV (80-100) fL MCH (26-34) PG MCHC (30-36) % RDW (11.6-14.8) % Plt Count (150-400) X10^3/uL Neut % (Auto) (50-75) % Lymph % (Auto) (25-40) % [place] % (Auto) (3-14) % Eos % (Auto) (2-4) % Baso % (Auto) (0-2) % Neut # (Auto) (1246-2933) /uL Lymph # (Auto) (0954-3277) /uL [place] # (Auto) (0-900) /uL Eos # (Auto) (0-450) /uL Baso # (Auto) (0-100) /uL PT (10.1-12.7) SECONDS INR (0.9-1.3) APTT (26-36) SECONDS Sodium 138 (137-145) mmol/L Potassium 4.2 (3.4-5.1) mmol/L Chloride 104 (98-107) mmol/L Carbon Dioxide 25 (22-32) mmol/L BUN 18 (9-20) mg/dL Creatinine 0.73 (0.66-1.25) mg/dL Estimated GFR > 60 (>60) mL/min BUN/Creatinine Ratio 24.7 H (6-22) Glucose 125 H (70-100) mg/dL Calcium 9.3 (8.4-10.2) mg/dL Total Bilirubin 0.4 (0.2-1.3) mg/dL AST 33 (17-59) IU/L ALT 50 H (<50) IU/L Alkaline Phosphatase 109 (38-126) U/L Total Protein 8.0 (6.3-8.2) g/dL Albumin 4.4 (3.5-5.0) g/dL Globulin 3.6 (1.7-4.1) g/dL Albumin/Globulin Ratio 1.2 (1.0-2.8) SARS-CoV-2 (PCR) (Negative) Influenza A (RT-PCR) (NEGATIVE) Influenza B (RT-PCR) (NEGATIVE) RSV (PCR) (Negative) Blood Type A Negative Antibody Screen Negative Urine Dip Bedside Urine Glucose Negative Bedside Urine Bilirubin - Negative Bedside Urine Ketone - Negative Urine Specific [place] 1.020 Bedside Urine Occult Blood - Negative Bedside Urine pH 5.5 Bedside Urine Protein - Negative Bedside Urine Urobilinogen - Negative Bedside Urine Nitrite - Negative Bedside Urine Leukocytes - Negative Esterase Imaging Data CT scan - abdomen/pelvis: Radiologist's Impression: [address] [address] [address] Scan Report Signed Patient: Dion Peres MR#: [id number] : 1985 Acct:[id number] Age/Sex: 36 / M Date of Service: 06/05/22 Loc: ED Accession Number: [id number] ?? Procedure: CT abdomen pelvis w con Ordering Provider: Immanuel Tay MD PROCEDURE:? CT ABDOMEN PELVIS W CON ? INDICATIONS:? IV contrast only/GI bleed ? TECHNIQUE:? After the administration of intravenous contrast, axial sections acquired from the lung bases to the pubic symphysis.? Coronal and sagittal reformats were performed.? For radiation dose reduction, the following was used:? automated exposure control, adjustment of mA and/or kV according to patient size.? ? COMPARISON:? CT, CT CHEST ABD PEL W CON, 04/24/2019, 23:31. ? FINDINGS:? Image quality:? Excellent.? ? Lung bases:? Unremarkable. Heart:? No significant findings. ? ABDOMEN: Liver:? Diffuse fatty infiltration of the liver. Gallbladder:? Gallbladder wall is prominent without cholelithiasis or pericholecystic fluid. Biliary ducts:? Unremarkable.? ? Pancreas:? Unremarkable.? ? Spleen:? Unremarkable.? ? Adrenal Glands:? Unremarkable.? ? Kidneys and Ureters:? Stable 4 millimeter nonobstructing left renal stone.? No right-sided renal stone.? No hydronephrosis. ? Stomach and Bowel:? Small hiatal hernia.? Stomach, small bowel loops, and colon are unremarkable.? The appendix is normal. Peritoneum:? No abnormal intraperitoneal fluid.? No free air.? ? Ventral Wall: ? Tiny fat containing supraumbilical ventral midline hernia. Abdominal Nodes:? No retroperitoneal or mesenteric adenopathy by size criteria.? Vessels:? Aorta and inferior vena cava are normal in size.? ? PELVIS: Pelvic Organs:? Unremarkable.? ? Bladder:? Unremarkable.? ? Pelvic Nodes: No enlarged lymph nodes.? Miscellaneous: No hernias are seen. ? ? ? Bones:? Unremarkable. ? ? ? IMPRESSION:? ? 1. Prominence of gallbladder wall without cholelithiasis or pericholecystic fluid.? If there is clinical concern for cholecystitis, consider abdominal ultrasound for additional evaluation. ? 2. Hepatic steatosis. ? 3. 4 millimeter nonobstructing left renal stone. ? ? Dictated by: Alondra Corona MD, PhD on 06/05/2022 at 15:28 ? ? Approved by: Alondra Corona MD, PhD on 06/05/2022 at 15:34 ? MDM Narrative Medical decision making narrative: Appropriate for discharge home. Exam and laboratory studies and imaging are reassuring. H and H and platelets are reassuring. Vital signs are reassuring no hypotension no tachycardia patient nontoxic. No rectal exam indicated this time. Does not change director. Return precautions reviewed with patient and family. I did review with general surgeon agrees for discharge home and follow up for endoscopy. Not toxic at discharge. Protonix started here and prescription provided as well. Discharge Plan Departure Patient Disposition: Home Clinical Impression: Acute GI bleeding Instructions: Gastrointestinal Bleeding Activity Restrictions/Additional Instructions: No fried fatty greasy foods, no spicy foods, no carbonated drinks, no alcohol products. Please call general surgery office tomorrow to schedule endoscopy of your stomach. You may need colonoscopy as well. Prescription for Protonix has been sent to your [facility] pharmacy. Return if worse if any questions or concerns. Prescriptions: New pantoprazole [Protonix] 40 mg tablet,delayed release (DR/EC) 40 mg PO DAILY Qty: 30 0RF No Action oxycodone 5 mg tablet See Rx Instructions PO Q6H PRN (Reason: pain) Qty: 20 0RF Rx Instructions: Take 1 or 2 PO every 6 hours PRN pain. May constipate. acetaminophen [Tylenol 8 Hour] 650 mg tablet extended release 650 mg PO Q8H PRN (Reason: Abdominal Pain) Referrals: Vernell Brown MD [Physician] - Jose Leung DO [Primary Care Provider] - Stand Alone Forms: Work Release Note Visit Report Forms: Patient Portal/API
--- NOTE | 2022-06-05 14:58 | DI.CT.S_ITS ---
PROCEDURE: CT ABDOMEN PELVIS W CON INDICATIONS: IV contrast only/GI bleed TECHNIQUE: After the administration of intravenous contrast, axial sections acquired from the lung bases to the pubic symphysis. Coronal and sagittal reformats were performed. For radiation dose reduction, the following was used: automated exposure control, adjustment of mA and/or kV according to patient size. COMPARISON: CT, CT CHEST ABD PEL W CON, 04/24/2019, 23:31. FINDINGS: Image quality: Excellent. Lung bases: Unremarkable. Heart: No significant findings. ABDOMEN: Liver: Diffuse fatty infiltration of the liver. Gallbladder: Gallbladder wall is prominent without cholelithiasis or pericholecystic fluid. Biliary ducts: Unremarkable. Pancreas: Unremarkable. Spleen: Unremarkable. Adrenal Glands: Unremarkable. Kidneys and Ureters: Stable 4 millimeter nonobstructing left renal stone. No right-sided renal stone. No hydronephrosis. Stomach and Bowel: Small hiatal hernia. Stomach, small bowel loops, and colon are unremarkable. The appendix is normal. Peritoneum: No abnormal intraperitoneal fluid. No free air. Ventral Wall: Tiny fat containing supraumbilical ventral midline hernia. Abdominal Nodes: No retroperitoneal or mesenteric adenopathy by size criteria. Vessels: Aorta and inferior vena cava are normal in size. PELVIS: Pelvic Organs: Unremarkable. Bladder: Unremarkable. Pelvic Nodes: No enlarged lymph nodes. Miscellaneous: No hernias are seen. Bones: Unremarkable. IMPRESSION: 1. Prominence of gallbladder wall without cholelithiasis or pericholecystic fluid. If there is clinical concern for cholecystitis, consider abdominal ultrasound for additional evaluation. 2. Hepatic steatosis. 3. 4 millimeter nonobstructing left renal stone. Dictated by: Alondra Corona MD, PhD on 06/05/2022 at 15:28 Approved by: Alondra Corona MD, PhD on 06/05/2022 at 15:34
[2022-06-05] MEDS: SODIUM CHLORIDE 0.9% 500 ML 1000 ML IV (15:33)
[2022-06-05 17:04] VITALS: BP 129/67; PULSE 55; RESP 16; O2SAT 98
== END 2022-06-05 17:05 | disposition home or self-care (01) ==
PROVIDERS: Emergency Provider Emergency Medicine; PCP Family Medicine
DX: K92.2 Gastrointestinal hemorrhage, unspecified (principal); M54.50 Low back pain, unspecified; Z20.822 Contact with and (suspected) exposure to COVID-19
CPT/HCPCS: 0241U; 36415; 74177; 80053; 81003; 85025; 85610; 85730; 86850; 86900; 86901; 96361; 96374; 96375; 99284; C9113; J2405; Q9967

== ENCOUNTER → 2022-06-13 14:37 | Outpatient (CLI) | payer OTHER, SELFPAY ==
[2021-01-05 14:09] VITALS: PULSE 79; RESP 16; O2SAT 99; BMI 25.5
[2022-06-13 15:26] LABS: COVID19 -Nasal RAPID Negative (Negative)
== END ==
PROVIDERS: PCP Family Medicine; Visit Provider Surgery
DX: Z20.822 Contact with and (suspected) exposure to COVID-19 (principal); Z01.812 Encounter for preprocedural laboratory examination
CPT/HCPCS: 87635; C9803

== ENCOUNTER 2022-06-14 13:49 | Day surgery (SDC) | payer OTHER, SELFPAY ==
[2021-01-05 14:09] VITALS: PULSE 79; RESP 16; O2SAT 99; BMI 25.5
[2022-06-14] VITALS (7 sets, daily range): BP systolic 98–121; BP diastolic 67–87; PULSE 65–81; RESP 12–18; TEMP 36.3–36.4; O2SAT 96–99; BMI 27.0
--- NOTE | 2022-06-14 | PATH_ITS ---
[facility] Accession Number: [id number] No. of containers..04 Tissue . 01 Material submitted: . PART A: stomach - ANTRUM BIOPSY PART B: esophagus - DISTAL ESOPHAGUS BIOPSY PART C: colon - ASCENDING COLON POLYP PART D: sigmoid colon - SIGMOID COLON POLYP . 01 Diagnosis: A. Stomach, Antrum, Biopsy: Antral mucosa with mild chronic gastritis. Negative for Helicobacter by immunohistochemistry. Negative for intestinal metaplasia. Negative for dysplasia and malignancy. . B. Distal Esophagus, Biopsy: Squamous mucosa with active inflammation and erosion. Intraepithelial eosinophils are not increased. No viral cytopathic effects or fungal organisms identified. Negative for dysplasia and malignancy. . C. Ascending Colon, Polyp, Biopsy: Tubular adenoma. . D. Sigmoid Colon, Polyp, Biopsy: Tubular adenoma. [facility] 06/20/2022 0943 Local . 01 Electronically signed: . Akiko Law MD, Pathologist NPI- [id number] . 01 Gross description: . Part A: ANTRUM BIOPSY: Received in formalin are 4 fragment(s) of goetz, soft tissue measuring 0.1 x 0.1 x 0.1 cm to 0.3 x 0.2 x 0.2 cm submitted entirely in 1 cassette(s) Part B: DISTAL ESOPHAGUS BIOPSY: Received in formalin are 2 fragment(s) of goetz, soft tissue measuring 0.1 x 0.1 x 0.1 cm to 0.2 x 0.2 x 0.1 cm submitted entirely in 1 cassette(s) Part C: ASCENDING COLON POLYP: Received in formalin is 1 fragment(s) of goetz, soft tissue measuring 0.6 x 0.2 x 0.2 cm submitted entirely in 1 cassette(s) Part D: SIGMOID COLON POLYP: Received in formalin is 1 fragment(s) of goetz, soft tissue measuring 0.5 x 0.3 x 0.3 cm submitted entirely in 1 cassette(s) /[facility] 06/16/2022 0022 Local . 01 Microscopic: . A. An immunohistochemical stain was performed to evaluate for Helicobacter organisms and is negative. The control stain showed appropriate reactivity. . * This test was developed and its performance characteristics determined by [facility]. It has not been cleared or approved by the U.S. Food and Drug Administration. The FDA has determined that such clearance or approval is not necessary. This test is used for clinical purposes. It should not be regarded as investigational or for research. . 01 Pathologist provided ICD-10: D12.2, D12.5 . 01 CPT . 139811, 804393, 818431, 272877, [id number] Specimen Comment: A courtesy copy of this report has been sent to [phone] Performed at: 01 [facility] [address] [place] [address] [address] [facility], [place], [place] [id number] MD Jeovanny Ta MD Phone: [phone]
--- NOTE | 2022-06-14 16:09 | PM.HP.1 ---
History of Present Illness History of Present Illness Date Patient Seen: 06/14/22 Time Patient Seen: 16:09 Chief complaint: EGD/COLONOSCOPY Narrative: Dion is a 36-year-old man was in the ER recently for melena. He thinks it caused by taking excessive amounts ibuprofen the past 2 months. He has stopped taking ibuprofen since his ER experience. He reports that his dad is currently dying of colon cancer. 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 Right calf pain URI (upper respiratory infection) Family & Social History Social History: household members significant other Tobacco & Substance use: Tobacco type cigarettes Smoking Status Current every day smoker alcohol intake current alcohol intake frequency holiday/special occasion Substance Use Type does not use Meds Home Medications and Allergies Home Medications Medication Instructions Recorded Confirmed Type oxycodone 5 mg tablet See Rx Instructions PO Q6H PRN 12/30/20 06/14/22 Rx pain #20 tabs acetaminophen 650 mg 650 mg PO Q8H PRN Abdominal Pain 01/05/21 06/14/22 History tablet,extended release (Tylenol 8 Hour) pantoprazole 40 mg tablet,delayed 40 mg PO DAILY #30 tabs 06/05/22 Rx release (Protonix) sodium sul 1.479 gram-potas ch See Rx Instructions PO PER PKG DIR 06/13/22 Rx 0.188 gram-magnes sul 0.225 gram #24 tabs tablet (Sutab) Allergies Allergy/AdvReac Type Severity Reaction Status Date / Time adhesive tape Allergy Intermediate Rash Verified 06/14/22 15:17 venom-honey bee Allergy Unknown Verified 06/14/22 15:17 [BEE VENOM (HONEY BEE)] Exam Vital Signs (past 8 hours): - 06/14/22 15:24 Temperature 97.6 F Pulse Rate 65 Respiratory Rate 16 Blood Pressure 121/79 Pulse Oximetry 96 Oxygen Delivery Method Room Air Oxygen Delivery Method Room Air Const General: healthy appearing Resp Effort & Inspection: normal respiratory effort Assessment & Plan Assessment and plan (1) Acute GI bleeding: Status: Acute Plan 36-year-old man with 1 episode melena. We will proceed with an EGD and colonoscopy Time Spent With Patient Critical Care time: I spent a total of [] minutes of critical care time on this patient's care today; this time is exclusive of procedural time.
--- NOTE | 2022-06-14 17:35 | P.OP.EGD&C_ITS ---
Operative Date/Time/Diagnoses Date of procedure: 06/14/22 Time of procedure: 17:35 Pre-op diagnosis: Melena Post-op diagnosis: same Procedure & Clinicians Study performed: EGD and colonoscopy Same procedure as scheduled: Yes Surgeon: Jaguar Landis Procedure Notes Procedure in detail: Surgeon: Jaguar Landis MD Anesthesia: Jose Antonio Humphreys MD Procedure in detail: A timeout was performed. A bite blocked was placed and monitors were attached to the patient. The patient was positioned in a left lateral decubitus position. Sedation was administered by Dr. Humphreys. Once the patient was sedated the endoscope was inserted through the bite block and passed through the esophagus and stomach and into the duodenum. No ulcers were seen in the duodenum or duodenal bulb. We then withdrew the scope into the stomach. There was mild antritis and random biopsies were taken from antrum. The endo scope was retroflexed and no hiatal hernia was seen. The endoscope was straightned and withdrawn into the esophagus. There were 2 small inflamed mucosal tears just above the Z line possibly relating to Alina-Barriga tears. A biopsy was taken from the distal esophagus. Findings: Mild antritis and mucosal tears of the distal esophagus Next we repositioned the patient for a colonoscopy. A digital rectal exam was performed and was normal. The colonoscope was inserted and advanced to the cecum. The appendiceal orifice was identified and photographed. The scope was slowly withdrawn over greater than 6 minutes. There was a 3 mm polyp in the ascending colon removed with a Jumbo forceps. There was a 6 mm polyp in the distal sigmoid removed with a cold snare. The scope was retroflexed in the rectum and no other abnormalities were noted. Findings: 3 mm polyp in the ascending colon and 6 mm polyp in the distal sigmoid colon EBL: 10 mL Scope withdrawal time: 8 minutes Sedation minutes: 29 minutes Post-procedure Disposition: PACU
== END 2022-06-14 18:14 | disposition home or self-care (01) ==
PROVIDERS: PCP Family Medicine; Referring Provider Surgery; Visit Provider Surgery
PROC: 0DJ08ZZ Inspection of Upper Intestinal Tract, Via Natural or Artificial Opening Endoscopic (ICD-10-PCS; CPT 43235; principal; 2022-06-14 15:00)
PROC: 0DJD8ZZ Inspection of Lower Intestinal Tract, Via Natural or Artificial Opening Endoscopic (ICD-10-PCS; CPT 45378; 2022-06-14 15:00)
DX: K92.1 Melena (principal); K29.50 Unspecified chronic gastritis without bleeding; S27.813A Laceration of esophagus (thoracic part), initial encounter; K20.90 Esophagitis, unspecified without bleeding; D12.2 Benign neoplasm of ascending colon; D12.5 Benign neoplasm of sigmoid colon
CPT/HCPCS: 45380; 43239

== ENCOUNTER 2022-07-30 06:43 | Emergency (ER) | payer OTHER, MEDICAID, SELFPAY ==
[2021-01-05 14:09] VITALS: PULSE 79; RESP 16; O2SAT 99; BMI 25.5
[2022-07-30] VITALS (30 sets, daily range): BP systolic 83–129; BP diastolic 51–77; PULSE 70–84; RESP 12–24; TEMP 37.4; O2SAT 92–96; BMI 27.0
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
[2022-07-30] MEDS: SODIUM CHLORIDE 0.9% 1,000 ML 1000 ML IV ×3 (07:24→09:23)
[2022-07-30 07:41] LABS: Add Manual Diff / Slide Review NO; Basophils Absolute Auto 100 /uL (0-100); Basophils Percent Auto 0.7 % (0-2); Eosinophils Absolute Auto 200 /uL (0-450); Eosinophils Percent Auto 3.2 % (2-4); Hematocrit 43.5 % (41-53); Hemoglobin 14.7 g/dL (13.5-17.5); Lymphocytes Absolute Auto 3500 /uL (1100-4500); Lymphocytes Percent Auto 45.7 % (25-40); Mean Corpuscular HGB Conc 33.7 % (30-36); Mean Corpuscular Hemoglobin 28.6 PG (26-34); Monocytes Absolute Auto 600 /uL (0-900); Monocytes Percent Auto 8.3 % (3-14); Neutrophils Absolute Auto 3200 /uL (1500-7000); Neutrophils Percent Auto 42.1 % (50-75); Platelet Count 168 X10^3/uL (150-400); Red Blood Cell Count 5.12 X10^6/uL (4.5-5.9); White Blood Cell Count 7.7 X10^3/uL (4.5-11.0)
[2022-07-30 07:47] LABS: Lactate (Lactic Acid) 0.9 mmol/L (0.7-2.1)
[2022-07-30 07:48] LABS: Alanine Aminotransferase 191 IU/L (<50); Albumin 4.2 g/dL (3.5-5.0); Albumin Globulin Ratio 1.1 (1.0-2.8); Alkaline Phosphatase 214 U/L (38-126); Aspartate Aminotransferase 107 IU/L (17-59); BUN Creatinine Ratio 13.5 (6-22); Blood Urea Nitrogen 10 mg/dL (9-20); Calcium 8.5 mg/dL (8.4-10.2); Carbon Dioxide 24 mmol/L (22-32); Chloride 101 mmol/L (98-107); Estimated Glomerular Filt Rate > 60 mL/min (>60); Globulin 3.7 g/dL (1.7-4.1); Glucose 126 mg/dL (70-100); HEMOLYSIS < 15 (0-50); Potassium 4.6 mmol/L (3.4-5.1); Sodium 136 mmol/L (137-145); Total Protein 7.9 g/dL (6.3-8.2)
--- NOTE | 2022-07-30 07:57 | DI.CT.S_ITS ---
PROCEDURE: CT ABDOMEN PELVIS W CON INDICATIONS: septic, flank / back pain, prior abd surgery TECHNIQUE: After the administration of intravenous contrast, axial sections acquired from the lung bases to the pubic symphysis. Coronal and sagittal reformats were performed. For radiation dose reduction, the following was used: automated exposure control, adjustment of mA and/or kV according to patient size. COMPARISON: [facility], CT, CT ABDOMEN PELVIS W CON, 06/05/2022, 15:14. FINDINGS: Image quality: Excellent. Lung bases: Unremarkable. Heart: No significant findings. ABDOMEN: Liver: Very mild diffuse hepatic steatosis.. Gallbladder: Unremarkable. Biliary ducts: Unremarkable. Pancreas: Unremarkable. Spleen: Unremarkable. Adrenal Glands: Unremarkable. Kidneys and Ureters: Left kidney 3 mm nonobstructing middle pole stone. Otherwise unremarkable. No hydronephrosis. Normal enhancement bilaterally. Stomach and Bowel: Small hiatal hernia. Stomach, small bowel loops, and colon are unremarkable. Peritoneum: No abnormal intraperitoneal fluid. No free air. Ventral Wall: No hernias. Abdominal Nodes: No retroperitoneal or mesenteric adenopathy by size criteria. Vessels: Aorta and inferior vena cava are normal in size. PELVIS: Pelvic Organs: Unremarkable. Bladder: Unremarkable. Pelvic Nodes: No enlarged lymph nodes. Miscellaneous: No hernias are seen. Bones: Unremarkable. IMPRESSION: 1. 3 mm nonobstructing left middle pole renal stone. 2. No evidence acute abdominal process. 3. Very mild hepatic steatosis. Dictated by: Edgardo Trinidad M.D. on 07/30/2022 at 8:22 Approved by: Edgardo Trinidad M.D. on 07/30/2022 at 8:35
[2022-07-30 07:58] LABS: Influenza A - CEPHEID Flu A NEGATIVE (NEGATIVE); Influenza B - CEPHEID Flu B NEGATIVE (NEGATIVE); Respiratory Syncytial Virus Negative (Negative)
[2022-07-30 07:59] LABS: COVID-19 CEPHEID 4-PLEX PCR Negative (Negative)
[2022-07-30] MEDS: KETOROLAC 30 MG/ML VIAL 15 MG IV (08:02)
[2022-07-30 08:33] LABS: Erythrocyte Sedimentation Rate 10 MM/HR (0-15)
--- NOTE | 2022-07-30 08:40 | DI.US.S_ITS ---
PROCEDURE: US ABDOMEN LIMITED INDICATIONS: ELEVATED LFTS; BACK PAIN; SEPTIC TECHNIQUE: Real-time focused scanning was performed of the abdomen, with image documentation. COMPARISON: [facility], CT, CT ABDOMEN PELVIS W CON, 07/30/2022, 8:04. FINDINGS: Hepatic steatosis. No focal hepatic mass in the provided images. Normally distended gallbladder without gallbladder wall thickening, sludge, gallstone, or pericholecystic fluid. No intrahepatic or extrahepatic biliary ductal dilatation. The common duct measures 6 millimeters near the bryan hepatis. No pancreatic ductal dilatation. Normal sonographic appearance of the pancreas. IMPRESSION: Hepatic steatosis. Otherwise normal right upper quadrant abdominal ultrasound. Dictated by: Shai Powell M.D. on 07/30/2022 at 9:11 Approved by: Shai Powell M.D. on 07/30/2022 at 9:13
[2022-07-30 08:52] LABS: C-Reactive Protein Quant 2.7 mg/dL (<1.0)
--- NOTE | 2022-07-30 09:26 | PC.NURSE ---
3rd liter ns running via pressure bag, nibp improving. pt gave urine sample after 2L ns urine dark brown/mariana 125 ml only
[2022-07-30 09:56] LABS: Ictotest Urine Negative (Negative)
[2022-07-30 09:57] LABS: Appearance Urine UA CLEAR; Color Urine UA YELLOW; Glucose Urine UA NEGATIVE (Negative); Ketones Urine UA TRACE (NEGATIVE); Leukocyte Esterase Urine UA NEGATIVE (NEGATIVE); Nitrite Urine UA NEGATIVE (Negative); Occult Blood Urine UA NEGATIVE (Negative); Protein Urine UA NEGATIVE (Negative); Specific Gravity Urine UA 1.015 (1.000-1.035); pH Urine UA 5.5 (4.5-8.0)
[2022-07-30 10:28] LABS: Bilirubin Urine UA Negative (NEGATIVE)
[2022-07-30 10:45] LABS: Bacteria Urine Occasional (0-1); Culture Indicated Urine Cult Not Indicated; Mucus Urine 1+ (Negative); RBC Urine None Seen (0-5/HPF); Squamous Epithelial Cell Urine None Seen (0-5/HPF); WBC Urine 0-1/HPF (0-5/HPF)
--- NOTE | 2022-07-30 10:58 | DI.MRI.S_ITS ---
PROCEDURE: MR LUMBAR SPINE WO/W CON INDICATIONS: septic, midline back pain TECHNIQUE: Noncontrast sagittal T1 spin echo and T2 fast echo, sagittal STIR, and T2 fast spin echo through the lumbar spine. In cases with scoliosis, additional coronal T2 fast spin echo may be performed. COMPARISON: None. FINDINGS: Image quality: Excellent. Alignment and Curvature: There is normal bony alignment. Bone Marrow: Marrow is of normal overall signal. No acute vertebral body compression fractures. Spinal Cord: Conus medullaris terminates at the normal level. Visualized cord demonstrates normal signal and size. Paraspinous Soft Tissues: No paravertebral masses. T12-L1: Normal appearance. L1-L2: Normal appearance. L2-L3: Normal appearance. L3-L4: No spinal canal stenosis. Mild neural foraminal narrowing. L4-L5: No spinal canal stenosis. Mild neural foraminal narrowing. L5-S1: No spinal canal stenosis. Mild neural foraminal narrowing. IMPRESSION: No acute or significant abnormality. Dictated by: Shai Powell M.D. on 07/30/2022 at 10:58 Approved by: Shai Powell M.D. on 07/30/2022 at 11:00
== END 2022-07-30 11:52 | disposition home or self-care (01) ==
PROVIDERS: Emergency Provider Emergency Medicine; PCP Family Medicine
DX: R50.9 Fever, unspecified (principal); R10.9 Unspecified abdominal pain; M54.9 Dorsalgia, unspecified; Z20.822 Contact with and (suspected) exposure to COVID-19
CPT/HCPCS: 0241U; 36415; 72158; 74177; 76705; 80053; 81001; 81003; 83605; 85025; 85651; 86140; 87040; 87086; 96361; 96374; 99284; A9579; J1885; Q9967

== ENCOUNTER 2022-12-08 20:51 | Emergency (ER) | payer OTHER, SELFPAY ==
[2021-01-05 14:09] VITALS: PULSE 79; RESP 16; O2SAT 99; BMI 25.5
--- NOTE | 2022-12-08 20:58 | ED_ITS ---
HPI - General Adult General Chief complaint: Abdominal Pain Stated complaint: Surgery t-10, Pain Time Seen by Provider: 12/08/22 20:58 History of Present Illness HPI narrative: 29-year-old male smoker presents with his significant other and a chief complaint of severe rectal pain over the course of the day. He states that he recently had an external thrombosed hemorrhoid repaired by surgery and had been doing fine unwell until he developed sudden onset rectal pain earlier this morni ng which was made significantly worse by a bowel movement. He states that he has been vigilant about taking stool softeners and was not constipated and was not straining but certainly developed worsening pain in the aftermath. He denies any abdominal pain, nausea or vomiting. He has no fever or chills and denies any rectal bleeding or drainage. Related Data Home Medications Medication Instructions Recorded Confirmed acetaminophen 650 mg 650 mg PO Q8H PRN Abdominal Pain 01/05/21 11/29/22 tablet,extended release (Tylenol 8 Hour) Previous Rx's Medication Instructions Recorded pantoprazole 40 mg tablet,delayed 40 mg PO DAILY #30 tabs 06/05/22 release (Protonix) gabapentin 300 mg capsule See Rx Instructions PO TID #180 08/08/22 caps hydrocortisone 2.5 % topical cream 1 applic MA QD-BID PRN hemorrhoids 11/26/22 with perineal applicator #30 grams (Procto-Med HC) hydrocodone 5 mg-acetaminophen 325 1 tab PO Q4-6H PRN pain #10 tabs 12/08/22 mg tablet ondansetron 4 mg disintegrating 4 mg PO TID-QID PRN nausea and 12/08/22 tablet vomiting #10 tabs Allergies Allergy/AdvReac Type Severity Reaction Status Date / Time adhesive tape Allergy Intermediate Rash Verified 12/08/22 21:10 venom-honey bee Allergy Unknown Verified 12/08/22 21:10 [BEE VENOM (HONEY BEE)] Review of Systems Review of Systems Narrative: GENERAL: Denies chills, fatigue, malaise, fever, sweats. HEENT: Denies sinus pain, ear pain, sore throat, difficulty swallowing, dizziness. RESPIRATORY: Denies dyspnea, cough, wheezing, hemoptysis, sputum. CARDIOVASCULAR: Denies chest pain, palpitations, orthopnea, edema, GASTROINTESTINAL: See HPI : Denies dysuria, frequency, incontinence, hematuria, urinary retention. MUSCULOSKELETAL: denies weakness, joint pain, or bony pain SKIN: Denies rash, skin lesions, or other NEUROLOGIC: Denies weakness, headache, numbness, change in speech, confusion, seizures, incoordination. PSYCHIATRIC: No concerning psychosocial issues. 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 Well-developed patient, in m ild distress. Obviously uncomfortable HEAD: Atraumatic. Normocephalic. EYES: Pupils equal round and reactive. Extraocular motions intact. No scleral icterus. No injection or drainage. ENT: Nose without bleeding, purulent drainage. Throat without erythema, tonsillar hypertrophy or exudate. Airway patent. NECK: Trachea midline. Non tender CARDIOVASCULAR: Regular rate and rhythm without murmurs, gallops, or rubs. RESPIRATORY: Clear to auscultation. Breath sounds equal bilaterally. No wheezes, rales, or rhonchi. GASTROINTESTINAL: Abdomen soft, non-tender, nondistended. RECTAL: No bleeding. Small external hemorroid at 0900. No fissure. NO other pain, induration, fluctuance, or drainage EXTREMITIES: No edema or joint tenderness. BACK: Nontender without deformity or crepitance. No flank tenderness. NEURO: AOx3. SKIN: No rash or erythema of visible areas Initial Vital Signs Initial Vital Signs: Vital Signs Temperature 97.3 F L 12/08/22 21:11 Pulse Rate 83 12/08/22 21:11 Respiratory Rate 18 12/08/22 21:11 Blood Pressure 124/82 12/08/22 21:11 Pulse Oximetry 99 12/08/22 21:11 Oxygen Delivery Method Room Air 12/08/22 21:11 Course Orders Ordered: ED Orders 12/08/22 22:07 CT abdomen pelvis w con Stat Complete Blood Count AUTO DIFF Stat Comprehensive Metabolic Panel Stat Lactate (Lactic Acid) Stat Hydromorphone HCl (Hydromorphone 1 Mg Inj) 1 mg IV Q15MIN PRN PRN Reason: Pain, Severe (7-10) Last Admin: 12/08/22 22:15 Dose: 1 mg Documented By: Discontinued Medications Hydrocodone Bitart/Acetaminophen (Hydrocodone/Acet 5/325 Prepack) 1 bottle MISC SEEINSTR ONE Stop: 12/08/22 23:11 Sodium Chloride (Normal Saline 0.9%) 1,000 mls @ 1,000 mls/hr IV BOLUS ONE Stop: 12/08/22 23:06 Last Admin: 12/08/22 22:22 Dose: 1,000 mls/hr Documented By: Consultations Consultation #1: 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 REcommends labs and imaging to rule out post surgical complication Vital Signs Vital signs: Vital Signs - 8 hr 12/08/22 21:11 Temperature 97.3 F L Pulse Rate 83 Respiratory Rate 18 Blood Pressure 124/82 Pulse Oximetry 99 Oxygen Delivery Method Room Air Medical Decision Making Lab Data 12/08/22 22:07 12/08/22 22:07 Labs: Lab Results 12/08/22 12/08/22 12/08/22 Range/Units 22:07 22:07 22:07 WBC 8.8 (4.5-11.0) X10^3/uL RBC 4.85 (4.5-5.9) X10^6/uL Hgb 13.8 (13.5-17.5) g/dL Hct 40.8 L (41-53) % MCV 84.2 (80-100) fL MCH 28.4 (26-34) PG MCHC 33.8 (30-36) % RDW 14.4 (11.6-14.8) % Plt Count 182 (150-400) X10^3/uL Neut % (Auto) 63.0 (50-75) % Lymph % (Auto) 28.0 (25-40) % [place] % (Auto) 7.5 (3-14) % Eos % (Auto) 1.2 L (2-4) % Baso % (Auto) 0.3 (0-2) % Neut # (Auto) 5600 (4957-4085) /uL Lymph # (Auto) 2500 (7030-1778) /uL [place] # (Auto) 700 (0-900) /uL Eos # (Auto) 100 (0-450) /uL Baso # (Auto) 0 (0-100) /uL Sodium 139 (137-145) mmol/L Potassium 4.3 (3.4-5.1) mmol/L Chloride 104 (98-107) mmol/L Carbon Dioxide 27 (22-32) mmol/L BUN 14 (9-20) mg/dL Creatinine 0.73 (0.66-1.25) mg/dL Estimated GFR > 60 (>60) mL/min BUN/Creatinine Ratio 19.2 (6-22) Glucose 88 (70-100) mg/dL Lactate 1.3 (0.7-2.1) mmol/L Calcium 9.2 (8.4-10.2) mg/dL Total Bilirubin 0.6 (0.2-1.3) mg/dL AST 24 (17-59) IU/L ALT 39 (<50) IU/L Alkaline Phosphatase 107 (38-126) U/L Total Protein 7.4 (6.3-8.2) g/dL Albumin 4.2 (3.5-5.0) g/dL Globulin 3.2 (1.7-4.1) g/dL Albumin/Globulin Ratio 1.3 (1.0-2.8) MDM Narrative Medical decision making narrative: [37] year old patient presents with rectal pain, recently had hemorrhoid procedure Multiple etiologies for patient's symptoms considered including, but not limited to: [Perirectal abscess versus hemorrhage versus postsurgical pain versus other] Prior Charts reviewed in our EMR Primary Historian: patient Labs reviewed and interpreted by myself: No leukocytosis or left shift, no evidence of anemia. Electrolytes, renal function and LFTs in normal range Imaging reviewed: CT of abdomen and pelvis with IV contrast demonstrates Consultations: Discussed with Dr. Sr, see details above Patient's symptoms improved over duration of stay with above-stated therapies. Findings and discharge diagnosis discussed with patient/family followed by verbalization of understanding Return precautions discussed with patient/family whom verbalize understanding of diagnosis and plan Discharge Plan Departure Patient Disposition: Home Clinical Impression: Anal or rectal pain Activity Restrictions/Additional Instructions: *You have been diagnosed with [rectal pain. As we discussed your labs are reassuring and the CT scan shows no significant finding.] *What to do: *Please continue to take your regular medications as directed. [ x] New medication prescriptions sent to your pharmacy: [ [facility]] [ ] New medication written as a paper prescription [ ] No new medications given *Please follow up with your primary care provider in 2-3 days, call for an appointment. Let them know you were seen in the Emergency Department and that we ask that you be seen in follow up. We will electronically transmit a record of today's note if your PCP is in our system *If you do not have a primary care provider please contact the [facility] Resource line at [phone]. They will ask some questions about your medical history and help get you set up with a doctor in the community. *Return to Emergency Department if you should have any new, worsening or concerning symptoms, such as [fever greater than 101 F, shaking chills, worsening pain, persistent vomiting or other bothersome symptoms] You have been prescribed a short course of narcotic medications. These are potentially dangerous and addictive medications that should be used carefully. While on these medications you cannot drive or operate heavy machinery. Additionally, you cannot sign legal documents or perform any duties such as this. 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 Please understand that we cannot provide further refills of narcotics or controlled substances through the ED and your pain management will need to be through your Primary Care Provider Prescriptions: New hydrocodone-acetaminophen 5-325 mg tablet 1 tab PO Q4-6H PRN (Reason: pain) Qty: 10 0RF ondansetron 4 mg tablet,disintegrating 4 mg PO TID-QID PRN (Reason: nausea and vomiting) Qty: 10 0RF No Action hydrocortisone [Procto-Med HC] 2.5 % cream with perineal applicator 1 applic MA QD-BID PRN (Reason: hemorrhoids) Qty: 30 0RF gabapentin 300 mg capsule See Rx Instructions PO TID Qty: 180 1RF Rx Instructions: Start with 1 cap qhs, increase by 1 cap every three days to max of 600mg TID orally three times a day; acetaminophen [Tylenol 8 Hour] 650 mg tablet extended release 650 mg PO Q8H PRN (Reason: Abdominal Pain) pantoprazole [Protonix] 40 mg tablet,delayed release (DR/EC) 40 mg PO DAILY Qty: 30 0RF Referrals: Jose Leung DO [Primary Care Provider] - Stand Alone Forms: Patient Portal/API
[2022-12-08 21:11] VITALS: BP 124/82; PULSE 83; RESP 18; TEMP 36.3; O2SAT 99; BMI 23.8
--- NOTE | 2022-12-08 22:07 | DI.CT.S_ITS ---
PROCEDURE: CT ABDOMEN PELVIS W CON INDICATIONS: severe rectal pain, recent rectal surgery TECHNIQUE: After the administration of intravenous contrast, axial sections acquired from the lung bases to the pubic symphysis. Coronal and sagittal reformats were performed. For radiation dose reduction, the following was used: automated exposure control, adjustment of mA and/or kV according to patient size. COMPARISON: [facility], CT, CT ABDOMEN PELVIS W CON, 07/30/2022, 8:04. [facility], CT, CT ABDOMEN PELVIS W CON, 06/05/2022, 15:14. FINDINGS: Image quality: Excellent. Lung bases: Unremarkable. Heart: No significant findings. ABDOMEN: Liver: Unremarkable. Gallbladder: Unremarkable. Biliary ducts: Unremarkable. Pancreas: Unremarkable. Spleen: Unremarkable. Adrenal Glands: Unremarkable. Kidneys and Ureters: Unremarkable except for prior callus central: Dating scan of the left mid kidney.. Stomach and Bowel: Stomach, small bowel loops, and colon are unremarkable. Peritoneum: No abnormal intraperitoneal fluid. No free air. Ventral Wall: No hernias. Abdominal Nodes: No retroperitoneal or mesenteric adenopathy by size criteria. Vessels: Aorta and inferior vena cava are normal in size. PELVIS: Pelvic Organs: Unremarkable. Bladder: Unremarkable. Pelvic Nodes: No enlarged lymph nodes. Miscellaneous: No hernias are seen. No note is made of a 5 mm your border of the lower rectum Bones: Unremarkable. IMPRESSION: Incidental note made of a nonobstructive 3 mm calculus at the middle 3rd of the left kidney. 5 mm presumed inflammatory focus at the posterior mid 6 o'clock position at the low margin of the rectum seen on series 2, image 102. Dictated by: Phoenix Fonseca M.D. on 12/08/2022 at 22:53 Approved by: Phoenix Fonseca M.D. on 12/08/2022 at 22:56
[2022-12-08] MEDS: HYDROMORPHONE 1 MG INJ IV (22:15)
[2022-12-08 22:17] LABS: Add Manual Diff / Slide Review NO; Basophils Absolute Auto 0 /uL (0-100); Basophils Percent Auto 0.3 % (0-2); Eosinophils Absolute Auto 100 /uL (0-450); Eosinophils Percent Auto 1.2 % (2-4); Hematocrit 40.8 % (41-53); Hemoglobin 13.8 g/dL (13.5-17.5); Lymphocytes Absolute Auto 2500 /uL (1100-4500); Mean Corpuscular HGB Conc 33.8 % (30-36); Mean Corpuscular Hemoglobin 28.4 PG (26-34); Mean Corpuscular Volume 84.2 fL (80-100); Monocytes Absolute Auto 700 /uL (0-900); Monocytes Percent Auto 7.5 % (3-14); Neutrophils Absolute Auto 5600 /uL (1500-7000); Platelet Count 182 X10^3/uL (150-400); Red Blood Cell Count 4.85 X10^6/uL (4.5-5.9); Red Cell Distribution Width 14.4 % (11.6-14.8); White Blood Cell Count 8.8 X10^3/uL (4.5-11.0)
[2022-12-08] MEDS: SODIUM CHLORIDE 0.9% 1,000 ML 1000 ML IV (22:22)
[2022-12-08 22:27] LABS: Lactate (Lactic Acid) 1.3 mmol/L (0.7-2.1)
[2022-12-08 22:28] LABS: Alanine Aminotransferase 39 IU/L (<50); Albumin 4.2 g/dL (3.5-5.0); Albumin Globulin Ratio 1.3 (1.0-2.8); Alkaline Phosphatase 107 U/L (38-126); Aspartate Aminotransferase 24 IU/L (17-59); BUN Creatinine Ratio 19.2 (6-22); Bilirubin Total 0.6 mg/dL (0.2-1.3); Blood Urea Nitrogen 14 mg/dL (9-20); Calcium 9.2 mg/dL (8.4-10.2); Carbon Dioxide 27 mmol/L (22-32); Chloride 104 mmol/L (98-107); Estimated Glomerular Filt Rate > 60 mL/min (>60); Globulin 3.2 g/dL (1.7-4.1); Glucose 88 mg/dL (70-100); HEMOLYSIS < 15 (0-50); Potassium 4.3 mmol/L (3.4-5.1); Sodium 139 mmol/L (137-145); Total Protein 7.4 g/dL (6.3-8.2)
[2022-12-08] MEDS: HYDROCODONE/ACET 5/325 PREPACK 1 BOTTLE MISC (23:21)
[2022-12-08 23:31] VITALS: BP 122/76; PULSE 77; RESP 17; O2SAT 99
== END 2022-12-08 23:33 | disposition home or self-care (01) ==
PROVIDERS: Emergency Provider Emergency Medicine; PCP Family Medicine
DX: K62.89 Other specified diseases of anus and rectum (principal)
CPT/HCPCS: 36415; 74177; 80053; 83605; 85025; 96361; 96374; 99284; J1170

== ENCOUNTER 2022-12-14 12:25 | Day surgery (SDC) | payer OTHER, SELFPAY ==
[2022-12-12 16:48] VITALS: PULSE 79; RESP 16; O2SAT 99; BMI 25.5
[2022-12-13 14:05] VITALS: BMI 23.6
[2022-12-14 12:38] VITALS: BP 101/60; PULSE 66; RESP 17; TEMP 36.5; O2SAT 95; BMI 23.6
[2022-12-14] MEDS: LACTATED RINGERS 1,000 ML 100 ML IV (12:45)
--- NOTE | 2022-12-14 13:24 | PM.PREOP ---
Pre-operative Note Interval Note History & Physical reviewed/Exam performed by Physician: Yes Changes to H&P: No
--- NOTE | 2022-12-14 14:12 | SUR.OPER ---
Lithotomy on padded OR bed, head on pillow, arms secured on padded arm boards at <90 degrees abduction. Legs secured in padded yellow fins stirrups.
[2022-12-14] MEDS: BUPIVACAINE 0.5% (PF) 10 ML VIAL 20 ML INJ (14:16)
[2022-12-14 14:27] VITALS: BP 136/81; PULSE 85; RESP 15; TEMP 36.2; O2SAT 99
[2022-12-14 14:32] VITALS: BP 138/84; PULSE 86; RESP 12; O2SAT 100
[2022-12-14 14:38] VITALS: BP 124/68; PULSE 86; RESP 13; O2SAT 100
--- NOTE | 2022-12-14 14:38 | PM.OP.1 ---
Operative Date/Time/Diagnoses Date of procedure: 12/14/22 Time of procedure: 14:38 Pre-op diagnosis: Perianal abscess Post-op diagnosis: other (Perianal abscess, perianal fistula) Procedure & Clinicians Procedure: Rectal examination under anesthesia Fistulotomy Same procedure as scheduled: Yes Indications: 37-year-old man with recurrent rectal pain here for exam under anesthesia Surgeon: Jude Sr Anesthesia Type: General Operative Notes Findings: Simple perianal abscess left lateral. A fistula track is demonstrated between the skin and the anal canal Specimen(s): none sent Estimated Blood Loss (mL): 10 Procedure in detail: Patient was brought to the operating room placed supine on the table. Bilateral lower extremity compression devices were applied. General anesthesia was induced he was intubated with an LMA. He was placed into lithotomy position appropriately padded. He is prepped and draped in sterile fashion a time-out was performed.External examination demonstrated a perianal area of fluctuance in the left lateral position and grade 1-2 internal hemorrhoids. An internal examination demonstrated no abnormality. Through the area of fluctuance in the left lateral position a lacrimal probe was placed into the skin opening here and this tracked directly into the anal canal. The the perianal skin and a few fibers of the internal sphincter were divided with electrocautery opening the fistula tract. The tract was then cleaned with a curette and irrigated hemostasis was achieved. He was then transferred to recovery room in stable condition. A total of 30 mL of 0.25% bupivacaine was used for local anesthetic. Complications: none Post-operative Condition: stable Disposition: same day surgery
[2022-12-14 14:42] VITALS: BP 124/89; PULSE 85; RESP 14; O2SAT 99
== END 2022-12-14 15:30 | disposition home or self-care (01) ==
PROVIDERS: PCP Family Medicine; Referring Provider Surgery; Visit Provider Surgery
PROC: (CPT 46275; principal; 2022-12-14 13:15)
DX: F17.200 Nicotine dependence, unspecified, uncomplicated (principal)
CPT/HCPCS: 46275; J2704; J3010

== ENCOUNTER 2024-01-19 05:01 | Emergency (ER) | payer OTHER, SELFPAY ==
[2022-12-12 16:48] VITALS: PULSE 79; RESP 16; O2SAT 99; BMI 25.5
[2024-01-19 05:08] VITALS: BP 133/82; PULSE 97; RESP 16; TEMP 36.9; O2SAT 94; BMI 24.7
--- NOTE | 2024-01-19 05:13 | DI.RAD.S_ITS ---
PROCEDURE: XR HIP W PEL IF DONE LT 2V INDICATIONS: fall with pain to left hip TECHNIQUE: 2 views of the hip were acquired. COMPARISON: None. FINDINGS: Bones: No fractures or dislocations. No suspicious bony lesions. The visualized pelvic ring appears intact. Soft tissues: No suspicious soft tissue calcifications or masses. IMPRESSION: No acute bony abnormality. Dictated by: Nina Vale M.D. on 01/19/2024 at 8:16 Approved by: Nina Vale M.D. on 01/19/2024 at 8:18
--- NOTE | 2024-01-19 05:31 | DI.RAD.S_ITS ---
PROCEDURE: XR KNEE LT 3V INDICATIONS: left knee pain, GLF TECHNIQUE: 3 views of the knee were acquired. COMPARISON: None. FINDINGS: Bones: No fractures or dislocations. No suspicious bony lesions. Soft tissues: No joint effusion. No suspicious soft tissue calcifications. IMPRESSION: No acute bony abnormality or significant effusion. Dictated by: Nnia Vale M.D. on 01/19/2024 at 8:18 Approved by: Nina Vale M.D. on 01/19/2024 at 8:19
--- NOTE | 2024-01-19 05:33 | DI.RAD.S_ITS ---
PROCEDURE: XR FEMUR LT MIN 2V INDICATIONS: left thigh pain after GLF TECHNIQUE: 2 views of the femur were acquired. COMPARISON: None. FINDINGS: Bones: No fractures or dislocations. No suspicious bony lesions. Soft tissues: No suspicious soft tissue calcifications or masses. IMPRESSION: No acute bony abnormality. Dictated by: Nina Vale M.D. on 01/19/2024 at 8:19 Approved by: Nina Vale M.D. on 01/19/2024 at 8:21
--- NOTE | 2024-01-19 05:34 | ED_ITS ---
HPI - Fall <Marvin Park MD - Last Filed: 01/19/24 22:33> General Chief Complaint: Fall Stated Complaint: fall with hip pain Time Seen by Provider: 01/19/24 05:27 Source: patient and EMS Mode of arrival: EMS History of Present Illness HPI Narrative: 38-year-old male was sleeping on a couch at home, got up, lost his balance, tripped over a laundry basket, had complaint of pain to left hip thigh and knee. Had difficulty trying to bear any weight. 911 was called by his , arrived by EMS, given fentanyl dose in route, decreased pain. Denies loss of consciousness, denies neck pain, upper back pain, lower back pain, chest pain, abdominal pain. He has no pain to the right lower extremity, nor to either upper extremity. His left foreleg ankle foot and toes nonpainful. Related Data Previous Rx's Medication Instructions Recorded gabapentin 600 mg tablet 600 mg PO TID #270 tabs 04/02/23 hydrocodone 5 mg-acetaminophen 325 1 tab PO Q6H PRN pain #10 tabs 01/19/24 mg tablet Allergies Allergy/AdvReac Type Severity Reaction Status Date / Time adhesive tape Allergy Intermediate Rash Verified 06/27/23 10:52 venom-honey bee Allergy Unknown Verified 06/27/23 10:52 [BEE VENOM (HONEY BEE)] Review of Systems <Marvin Park MD - Last Filed: 01/19/24 22:33> Review of Systems Narrative: see HPI Patient History <Marvin Park MD - Last Filed: 01/19/24 22:33> Medical History (Updated 01/19/24 @ 05:39 by Marvin Park MD) Chronic bilateral low back pain with bilateral sciatica Encounter for vasectomy counseling History of colonic polyps Colon polyps History of hematemesis History of melena Alina-Barriga tear Hiatal hernia Incisional hernia of anterior abdominal wall without obstruction or gangrene URI (upper respiratory infection) Exposure to COVID-19 virus Insomnia due to medical condition Fractures (~2018) Foot pain (~2019) History of skull fracture History of DVT of lower extremity Right calf pain Surgical History (Updated 12/13/22 @ 14:24 by Karina Ochoa RN) Hx of colonoscopy (06/14/22) Hx of hernia repair (07/20/20) Social History household members: significant other Smoking Status: Current every day smoker alcohol intake: former substance use type: marijuana Smoking Status: Current every day smoker tobacco type: vaping alcohol intake frequency: holidays/special occasions only Substance Use Type: marijuana Exam <Marvin Park MD - Last Filed: 01/19/24 22:33> Narrative Exam Narrative: GENERAL: Well-developed patient, in mild distress, slow speech with some difficulty to arouse, at bedside attributes this to IV fentanyl dose from EMS, was alert prior to dose. HEAD: Atraumatic. Normocephalic. EYES: Pupils equal round and reactive. Extraocular motions intact. No scleral icterus. No injection or drainage. ENT: Nose without bleeding, purulent drainage. Throat without erythema, tonsillar hypertrophy or exudate. Airway patent. NECK: Trachea midline. Non tender CARDIOVASCULAR: Regular rate and rhythm without murmurs, gallops, or rubs. RESPIRATORY: Clear to auscultation. Breath sounds equal bilaterally. No wheezes, rales, or rhonchi. GASTROINTESTINAL: Abdomen soft, non-tender, nondistended. EXTREMITIES: Tenderness to right lateral hip, no gross deformity, no limb length discrepancy, some tenderness along left thigh versus referred pain to hip, also some tenderness to left patella, no tenderness along left knee medial or lateral joint line. Good DP pulse left extremity. No right lower extremity injuries obvious, no upper extremity injuries obvious. BACK: Nontender without deformity or crepitance. No flank tenderness. NEURO: AOx3. SKIN: No rash or erythema of visible areas Initial Vital Signs Initial Vital Signs: Vital Signs Temperature 98.4 F 01/19/24 05:08 Pulse Rate 97 H 01/19/24 05:08 Respiratory Rate 16 01/19/24 05:08 Blood Pressure 133/82 01/19/24 05:08 Pulse Oximetry 94 01/19/24 05:08 Oxygen Delivery Method Room Air 01/19/24 05:08 <Silvina Sow DO - Last Filed: 01/19/24 09:51> Initial Vital Signs Initial Vital Signs: Vital Signs Temperature 98.4 F 01/19/24 05:08 Pulse Rate 97 H 01/19/24 05:08 Respiratory Rate 16 01/19/24 05:08 Blood Pressure 133/82 01/19/24 05:08 Pulse Oximetry 94 01/19/24 05:08 Oxygen Delivery Method Room Air 01/19/24 05:08 Course <Marvin Park MD - Last Filed: 01/19/24 22:33> Orders Ordered: Discontinued Medications Ketorolac Tromethamine (Ketorolac 30 Mg/Ml Vial) 15 mg IV NOW ONE Stop: 01/19/24 07:22 Last Admin: 01/19/24 07:29 Dose: 15 mg Documented By: CTS Vital Signs Vital signs: Vital Signs - 8 hr 01/19/24 05:08 01/19/24 07:02 01/19/24 07:03 Temperature 98.4 F Pulse Rate 97 H 68 Respiratory Rate 16 Blood Pressure 133/82 100/57 L Pulse Oximetry 94 94 Oxygen Delivery Method Room Air 01/19/24 07:03 01/19/24 07:30 01/19/24 07:30 Temperature Pulse Rate 70 80 Respiratory Rate Blood Pressure 120/75 Pulse Oximetry 94 95 Oxygen Delivery Method <Silvina Sow DO - Last Filed: 01/19/24 09:51> Orders Ordered: Discontinued Medications Ketorolac Tromethamine (Ketorolac 30 Mg/Ml Vial) 15 mg IV NOW ONE Stop: 01/19/24 07:22 Last Admin: 01/19/24 07:29 Dose: 15 mg Documented By: CTS Vital Signs Vital signs: Vital Signs - 8 hr 01/19/24 05:08 01/19/24 07:02 01/19/24 07:03 Temperature 98.4 F Pulse Rate 97 H 68 Respiratory Rate 16 Blood Pressure 133/82 100/57 L Pulse Oximetry 94 94 Oxygen Delivery Method Room Air 01/19/24 07:03 01/19/24 07:30 01/19/24 07:30 Temperature Pulse Rate 70 80 Respiratory Rate Blood Pressure 120/75 Pulse Oximetry 94 95 Oxygen Delivery Method MDM - Fall <Marvin Park MD - Last Filed: 01/19/24 22:33> MDM Narrative Medical decision making narrative: Recent fall, left hip thigh knee pain, recent alcohol use, however states that patient did not seem confused prior to EMS transport, was given IV fentanyl EN route. X-rays requested of left femur and knee. Hold further sedating medication at this time. X-ray left knee. Impressions: ?Normal left knee.? See teleradiology report X-ray left femur. Impressions: ?No acute traumatic injury is identified. ? See teleradiology report Patient/ informed about x-ray findings, however patient still fairly sedated from IV fentanyl EMS, reported alcohol use, await improvement of mental status. We did not perform CT head/cervical spine imaging at this time, reported that his mental status was normal prior to exposure to IV fentanyl by EMS. Further observe for now, anticipate discharge home. Signed out to [facility] ED shift physician Dr. Juanjose Sow: Patient signed out to be by Dr. Park I have seen evaluated patient myself. Still sleepy no evidence of head trauma. More awake alert no evidence of head trauma. He does still have some pain to palpation in left hip distal pedal pulse intact x-rays have been reviewed and negative. He has given a dose of Toradol through the IV. He works at the [employer] he reports he does not drink daily where he can not use narcotics at work. X-ray of knee preliminary report negative X-ray of femur preliminary report negative X-ray left hip and pelvis negative <Silvina Sow, DO - Last Filed: 01/19/24 09:51> [facility] Narrative Medical decision making narrative: Recent fall, left hip thigh knee pain, recent alcohol use, however states that patient did not seem confused prior to EMS transport, was given IV fentanyl EN route. X-rays requested of left femur and knee. Hold further sedating medication at this time. X-ray left knee. Impressions: ?Normal left knee.? See teleradiology report X-ray left femur. Impressions: ?No acute traumatic injury is identified. ? See teleradiology report Patient/ informed about x-ray findings, however patient still fairly sedated from IV fentanyl EMS, reported alcohol use, await improvement of mental status. We did not perform CT head/cervical spine imaging at this time, reported that his mental status was improved prior to exposure to fentanyl by EMS. Further observe for now, anticipate discharge home. Signed out to [facility] ED shift physician Dr. Juanjose Sow: Patient signed out to be by Dr. Park I have seen evaluated patient myself. Still sleepy no evidence of head trauma. More awake alert no evidence of head trauma. He does still have some pain to palpation in left hip distal pedal pulse intact x-rays have been reviewed and negative. He has given a dose of Toradol through the IV. He works at the [employer] he reports he does not drink daily where he can not use narcotics at work. X-ray of knee preliminary report negative X-ray of femur preliminary report negative X-ray left hip and pelvis negative Discharge Plan Departure Patient Disposition: Home Clinical Impression: Contusion of left hip, Contusion of left knee Instructions: Contusion Activity Restrictions/Additional Instructions: *You have been diagnosed with contusion left hip *What to do: At this time increase activity as tolerated ice 20-30 minutes at a time. No heavy lifting or strenuous work but light activity is encouraged. For full returned to work he will need to see a PCP. *Continue to take medications as directed [place] 1 tablet at nighttime to help with pain Motrin 600 mg every 6 hours if needed for [id number] pain *Follow up with your primary care provider in 2-3 days or call [phone] *Return to ER if you should have inability to walk that this tingling or any new, worsening or concerning symptoms CONTROLLED SUBSTANCE DISCHARGE (Narcotoic/benzodiazepine/Flexeril/Phenergan) 1. You have been prescribed narcotic medications, it does have acetaminophen/Tylenol/paracetamol in it, DO NOT TAKE MORE THAN 4,00mg in 24 hours of Tylenol. TRAMADOL DOES NOT CONTAIN TYLENOL 2. Please understand that we cannot provide further refills of narcotics, benzodiazepines or controlled substances through the ED and her pain management will need to be through your provider. 3. While on these medications you cannot drive or operate heavy machinery. 4. You cannot sign legal documents or perform any duties such as this. 5. As long as you're taking opiate pain medications he should also be taking a stool softener such as Colace, Dulcolax, MiraLAX or prune juice, to help avoid constipation. Prescriptions: New hydrocodone-acetaminophen 5-325 mg tablet 1 tab PO Q6H PRN (Reason: pain) Qty: 10 0RF No Action gabapentin 600 mg tablet 600 mg PO TID Qty: 270 3RF Referrals: Jose Leung DO [Primary Care Provider] - Stand Alone Forms: Patient Portal/API, Work Release Note
[2024-01-19 07:02] VITALS: PULSE 68; O2SAT 94
[2024-01-19 07:03] VITALS: BP 100/57; PULSE 70; O2SAT 94
[2024-01-19] MEDS: KETOROLAC 30 MG/ML VIAL 15 MG IV (07:29)
[2024-01-19 07:30] VITALS: BP 120/75; PULSE 80; O2SAT 95
== END 2024-01-19 08:12 | disposition home or self-care (01) ==
PROVIDERS: Emergency Provider Emergency Medicine; PCP Family Medicine
DX: S70.02XA Contusion of left hip, initial encounter (principal); S80.02XA Contusion of left knee, initial encounter; W01.0XXA Fall on same level from slipping, tripping and stumbling without subsequent striking against object, initial encounter
CPT/HCPCS: 73502; 73552; 73562; 96374; 99284; J1885

== ENCOUNTER 2024-06-17 04:32 | Emergency (ER) | payer SELFPAY ==
[2022-12-12 16:48] VITALS: PULSE 79; RESP 16; O2SAT 99; BMI 25.5
[2024-06-17] VITALS (8 sets, daily range): BP systolic 116–148; BP diastolic 73–93; PULSE 56–70; RESP 11–16; TEMP 36.8; O2SAT 95–98; BMI 27.6
--- NOTE | 2024-06-17 06:28 | DI.US.S_ITS ---
PROCEDURE: US PERIPH VENOUS LOW EXTREM LT INDICATIONS: L CALF/KNEE PAIN, HX DVT TECHNIQUE: Real-time imaging, as well as color and pulse Doppler interrogation, were performed of the lower extremity deep veins from the inguinal ligament to the popliteal fossa, with documentation of the visualized calf veins. COMPARISON: None. FINDINGS: Filling defect within the popliteal vein. The common femoral, femoral, and the visualized calf veins are normally compressible, and free of intraluminal thrombus. Color and pulse Doppler demonstrate normal phasic intraluminal flow. There is normal augmentation response to distal compression maneuver. IMPRESSION: Nonocclusive thrombus within the popliteal vein. Dictated by: Nato Neil M.D. on 06/17/2024 at 7:45 Approved by: Nato Neil M.D. on 06/17/2024 at 7:47
--- NOTE | 2024-06-17 06:28 | DI.RAD.S_ITS ---
PROCEDURE: XR KNEE LT 3V INDICATIONS: ATRAUMATIC PAIN TECHNIQUE: 3 views of the knee were acquired. COMPARISON: [facility], , XR KNEE LT 3V, 01/19/2024, 5:50. FINDINGS: Bones: No fractures or dislocations. No suspicious bony lesions. Soft tissues: No joint effusion. No suspicious soft tissue calcifications. IMPRESSION: No acute bony abnormality or significant effusion. Dictated by: Nato Neil M.D. on 06/17/2024 at 7:41 Approved by: Nato Neil M.D. on 06/17/2024 at 7:41
[2024-06-17 06:47] LABS: Add Manual Diff / Slide Review NO; Basophils Absolute Auto 0 /uL (0-100); Basophils Percent Auto 0.6 % (0-2); Eosinophils Absolute Auto 300 /uL (0-450); Eosinophils Percent Auto 5.7 % (2-4); Hematocrit 41.6 % (41-53); Hemoglobin 14.3 g/dL (13.5-17.5); Lymphocytes Absolute Auto 1800 /uL (1100-4500); Lymphocytes Percent Auto 32.1 % (25-40); Mean Corpuscular HGB Conc 34.3 % (30-36); Mean Corpuscular Hemoglobin 29.9 PG (26-34); Mean Corpuscular Volume 87.1 fL (80-100); Monocytes Absolute Auto 700 /uL (0-900); Neutrophils Absolute Auto 2800 /uL (1500-7000); Neutrophils Percent Auto 49.6 % (50-75); Platelet Count 174 X10^3/uL (150-400); Red Blood Cell Count 4.78 X10^6/uL (4.5-5.9); White Blood Cell Count 5.5 X10^3/uL (4.5-11.0)
[2024-06-17 07:04] LABS: Alanine Aminotransferase 53 IU/L (<50); Albumin 4.4 g/dL (3.5-5.0); Albumin Globulin Ratio 1.5 (1.0-2.8); Alkaline Phosphatase 113 U/L (38-126); Aspartate Aminotransferase 36 IU/L (17-59); BUN Creatinine Ratio 19.1 (6-22); Bilirubin Total 0.5 mg/dL (0.2-1.3); Blood Urea Nitrogen 17 mg/dL (9-20); Carbon Dioxide 28 mmol/L (22-32); Chloride 104 mmol/L (98-107); Estimated Glomerular Filt Rate > 60 mL/min (>60); Globulin 2.9 g/dL (1.7-4.1); Glucose 112 mg/dL (70-100); HEMOLYSIS < 15 (0-50); Potassium 3.7 mmol/L (3.4-5.1); Sodium 139 mmol/L (137-145); Total Protein 7.3 g/dL (6.3-8.2)
--- NOTE | 2024-06-17 07:37 | ED.EXTPRO ---
HPI - Extremity Problem General Chief complaint: Extremity Problem,Nontraumatic Stated complaint: severe pain in left calf area. history of clots Time Seen by Provider: 06/17/24 04:48 Source: patient Mode of arrival: Ambulatory History of Present Illness HPI Narrative: Patient here with . Complains of left mid calf discomfort starting about 3 days ago and worsened this morning. No no no chest pain or shortness of breath. 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 He states they could not figure out why he was getting them other than he had trauma in the past. It has been 3 or 4 years since he has been treated for DVTs. Related Data Home Medications Medication Instructions Recorded Confirmed acetaminophen 500 mg tablet 1,000 mg PO Q4H PRN 06/18/24 06/18/24 (Tylenol Extra Strength) Previous Rx's Medication Instructions Recorded apixaban 5 mg tablet (Eliquis) See Rx Instructions .Route 06/17/24 .COMPLEX #74 tabs gabapentin 600 mg tablet 900 mg (1.5 x 600 mg) PO TID 90 06/18/24 days #405 tabs Allergies Allergy/AdvReac Type Severity Reaction Status Date / Time adhesive tape Allergy Intermediate Rash Verified 06/18/24 15:04 venom-honey bee Allergy Unknown Verified 06/18/24 15:04 [BEE VENOM (HONEY BEE)] Review of Systems Review of Systems Narrative: GENERAL: Negative chills, fatigue, malaise, fever, sweats. HEENT: Negative sinus pain, ear pain, sore throat RESPIRATORY: Negative dyspnea, cough CARDIOVASCULAR: Negative chest pain, palpitations GASTROINTESTINAL: Negative nausea, vomiting, abdominal pain : Negative dysuria, frequency, hematuria MUSCULOSKELETAL: Positive muscle or bony pain SKIN: Negative rash, skin lesions NEUROLOGIC: Negative weakness, numbness ROS Unobtainable: All systems reviewed & are unremarkable except as noted in HPI and below Patient History Medical History (Updated 06/18/24 @ 17:10 by Eve Solis PA-C) Chronic bilateral low back pain with bilateral sciatica Encounter for vasectomy counseling History of colonic polyps Colon polyps History of hematemesis History of melena Alina-Barriga tear Hiatal hernia Incisional hernia of anterior abdominal wall without obstruction or gangrene URI (upper respiratory infection) Exposure to COVID-19 virus Insomnia due to medical condition Fractures (~2018) Foot pain (~2019) History of skull fracture History of DVT of lower extremity Right calf pain Surgical History (Updated 12/13/22 @ 14:24 by Karina Ochoa RN) Hx of colonoscopy (06/14/22) Hx of hernia repair (07/20/20) Social History household members: significant other Smoking Status: Current every day smoker alcohol intake: former substance use type: marijuana Smoking Status: Current every day smoker tobacco type: vaping alcohol intake frequency: holidays/special occasions only Exam Narrative Exam Narrative: GENERAL: in no distress, not toxic not dyspneic HEAD: Normocephalic. EYES: Pupils equal round ENT: Mucous membranes moist. NECK: Trachea midline. CARDIOVASCULAR: Regular rate and rhythm RESPIRATORY: Clear to auscultation. Breath sounds equal bilaterally. No wheezes, rales, or rhonchi. EXTREMITIES: No gross deformities. Bilateral thighs to toes exposed. Grossly symmetric calves. Feet are warm soft pink brisk cap refill strong pedal pulses. Light touch intact to feet and toes. Left calf mild mid calf tenderness but no palpable cords. Negative Timmons test. Positive Homans test. NEURO: AOx4. SKIN: Warm and dry PSYCH: Not anxious, is cooperative Initial Vital Signs Initial Vital Signs: Vital Signs Temperature 98.3 F 06/17/24 04:43 Pulse Rate 69 06/17/24 04:43 Respiratory Rate 16 06/17/24 04:43 Blood Pressure 148/93 H 06/17/24 04:43 Pulse Oximetry 95 06/17/24 04:43 Oxygen Delivery Method Room Air 06/17/24 04:43 Course Orders Ordered: Discontinued Medications Apixaban (Apixaban 5 Mg Tablet) 10 mg PO NOW ONE Stop: 06/17/24 08:22 Last Admin: 06/17/24 08:35 Dose: 10 mg Documented By: RB Vital Signs Vital signs: Vital Signs - 8 hr 06/17/24 04:43 06/17/24 06:20 06/17/24 06:21 Temperature 98.3 F Pulse Rate 69 69 67 Respiratory Rate 16 Blood Pressure 148/93 H Pulse Oximetry 95 98 98 Oxygen Delivery Method Room Air 06/17/24 06:21 06/17/24 06:30 06/17/24 06:30 Temperature Pulse Rate 62 Respiratory Rate 16 Blood Pressure 134/91 H 126/88 Pulse Oximetry 97 Oxygen Delivery Method 06/17/24 07:00 06/17/24 07:00 06/17/24 07:00 Temperature Pulse Rate 63 63 Respiratory Rate 14 14 Blood Pressure 129/83 Pulse Oximetry 97 97 Oxygen Delivery Method 06/17/24 07:30 06/17/24 07:30 Temperature Pulse Rate 56 L Respiratory Rate 11 L Blood Pressure 116/80 Pulse Oximetry 98 Oxygen Delivery Method MDM - Extremity (Nontraumatic) Lab Data 06/17/24 06:35 06/17/24 06:35 Labs: Lab Results 06/17/24 Range/Units 06:35 WBC 5.5 (4.5-11.0) X10^3/uL RBC 4.78 (4.5-5.9) X10^6/uL Hgb 14.3 (13.5-17.5) g/dL Hct 41.6 (41-53) % MCV 87.1 (80-100) fL MCH 29.9 (26-34) PG MCHC 34.3 (30-36) % RDW 13.0 (11.6-14.8) % Plt Count 174 (150-400) X10^3/uL Neut % (Auto) 49.6 L (50-75) % Lymph % (Auto) 32.1 (25-40) % [place] % (Auto) 12.0 (3-14) % Eos % (Auto) 5.7 H (2-4) % Baso % (Auto) 0.6 (0-2) % Neut # (Auto) 2800 (4684-8262) /uL Lymph # (Auto) 1800 (0244-2271) /uL [place] # (Auto) 700 (0-900) /uL Eos # (Auto) 300 (0-450) /uL Baso # (Auto) 0 (0-100) /uL PT 10.1 (9.4-12.5) SECONDS INR 0.9 (0.9-1.3) APTT 31 (25.1-36.5) SECONDS Sodium 139 (137-145) mmol/L Potassium 3.7 (3.4-5.1) mmol/L Chloride 104 (98-107) mmol/L Carbon Dioxide 28 (22-32) mmol/L BUN 17 (9-20) mg/dL Creatinine 0.89 (0.66-1.25) mg/dL Estimated GFR > 60 (>60) mL/min BUN/Creatinine Ratio 19.1 (6-22) Glucose 112 H (70-100) mg/dL Calcium 9.0 (8.4-10.2) mg/dL Magnesium 2.0 (1.6-2.3) mg/dL Total Bilirubin 0.5 (0.2-1.3) mg/dL AST 36 (17-59) IU/L ALT 53 H (<50) IU/L Alkaline Phosphatase 113 (38-126) U/L Total Protein 7.3 (6.3-8.2) g/dL Albumin 4.4 (3.5-5.0) g/dL Globulin 2.9 (1.7-4.1) g/dL Albumin/Globulin Ratio 1.5 (1.0-2.8) Imaging Data US - DVT: Radiologist's Impression: [address] [address] Ultrasound Report Signed Patient: Dion Peres MR#: [id number] : 1985 Acct:[id number] Age/Sex: 38 / M Date of Service: 06/17/24 Loc: ED Accession Number: [id number] Procedure: US periph venous low extrem lt Ordering Provider: Hiral Back MD PROCEDURE: US PERIPH VENOUS LOW EXTREM LT INDICATIONS: L CALF/KNEE PAIN, HX DVT TECHNIQUE: Real-time imaging, as well as color and pulse Doppler interrogation, were performed of the lower extremity deep veins from the inguinal ligament to the popliteal fossa, with documentation of the visualized calf veins. COMPARISON: None. FINDINGS: Filling defect within the popliteal vein. The common femoral, femoral, and the visualized calf veins are normally compressible, and free of intraluminal thrombus. Color and pulse Doppler demonstrate normal phasic intraluminal flow. There is normal augmentation response to distal compression maneuver. IMPRESSION: Nonocclusive thrombus within the popliteal vein. Dictated by: Nato Neil M.D. on 06/17/2024 at 7:45 Approved by: Nato Neil M.D. on 06/17/2024 at 7:47 Extremity x-ray #1: Radiologist's Impression: [address] [place] [address] XRay Report Signed Patient: Dion Peres MR#: [id number] : 1985 Acct:[id number] Age/Sex: 38 / M Date of Service: 06/17/24 Loc: ED Accession Number: [id number] Procedure: XR knee LT 3V Ordering Provider: Hiral Back MD PROCEDURE: XR KNEE LT 3V INDICATIONS: ATRAUMATIC PAIN TECHNIQUE: 3 views of the knee were acquired. COMPARISON: [facility], , XR KNEE LT 3V, 01/19/2024, 5:50. FINDINGS: Bones: No fractures or dislocations. No suspicious bony lesions. Soft tissues: No joint effusion. No suspicious soft tissue calcifications. IMPRESSION: No acute bony abnormality or significant effusion. Dictated by: Nato Neil M.D. on 06/17/2024 at 7:41 Approved by: Nato Neil M.D. on 06/17/2024 at 7:41 [facility] Narrative Medical decision making narrative: Patient here with . Complains of left mid calf discomfort starting about 3 days ago and worsened this morning. No no no chest pain or shortness of breath. 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 He states they could not figure out why he was getting them other than he had trauma in the past. It has been 3 or 4 years since he has been treated for DVTs. After history and exam CBC CMP PT INR ultrasound left leg [facility] Medical records reviewed: No recent visit for this complaint Differential considered: Includes but not limited to Lab Test results independently reviewed as above. Pertinent findings: WBC 5.5 hemoglobin 14.3 platelets 174 BUN 17 creatinine 0.89 Imaging studies independently reviewed: Ultrasound left leg popliteal DVT Consultations: None indicated Treatments: Eliquis Re-evaluations: 8:30 a.m.. Updated patient and results. No chest pain no shortness of breath. They do have primary care follow up with. Work note provided. Eliquis started and will be prescribed. Thirty day supply. Return precautions reviewed. They desire discharge home. Discussion: Appropriate for discharge home on Eliquis. Patient hemodynamically stable. No respiratory complaints. They desire discharge home. Work note provided Diagnosis: Acute DVT Discharge Plan Departure Patient Disposition: Home Clinical Impression: Deep vein thrombosis of lower extremity Qualifiers: Affected thrombotic vein of extremity: popliteal Chronicity: acute Laterality: left Qualified Code(s): I82.432 - Acute embolism and thrombosis of left popliteal vein Instructions: DI for Deep Vein Thrombosis Activity Restrictions/Additional Instructions: You are being treated for a blood clot in the left leg. Eliquis was started today and prescription provided. Please see family doctor within a week for re-evaluation and continuation of the Eliquis. Work note has been provided for you. Return if worse if any questions or concerns or if any trouble breathing or shortness of breath. Prescriptions: New Eliquis 5 mg tablet See Rx Instructions .ROUTE .COMPLEX Qty: 74 0RF Rx Instructions: Take 10 mg twice a day for 10 days and then 5 mg twice a day No Action acetaminophen [Tylenol Extra Strength] 500 mg tablet 1,000 mg PO Q4H PRN gabapentin 600 mg tablet 900 mg PO TID 90 Days Qty: 405 0RF Referrals: Jose Leung DO [Primary Care Provider] - Stand Alone Forms: Patient Portal/API/Survey, Work Release Note
[2024-06-17 07:53] LABS: INR 0.9 (0.9-1.3); Prothrombin Time 10.1 SECONDS (9.4-12.5)
[2024-06-17 07:56] LABS: PTT Partial Thromboplastin Tim 31 SECONDS (25.1-36.5)
[2024-06-17] MEDS: APIXABAN 5 MG TABLET 10 MG PO (08:35)
== END 2024-06-17 08:48 | disposition home or self-care (01) ==
PROVIDERS: Emergency Medicine; Emergency Provider Emergency Medicine; PCP Family Medicine
DX: I82.432 Acute embolism and thrombosis of left popliteal vein (principal); Z86.718 Personal history of other venous thrombosis and embolism
CPT/HCPCS: 36415; 73562; 80053; 83735; 85025; 85610; 85730; 93971; 99284

== ENCOUNTER 2024-06-30 18:12 | Emergency (ER) | payer SELFPAY ==
[2022-12-12 16:48] VITALS: PULSE 79; RESP 16; O2SAT 99; BMI 25.5
[2024-06-30 18:15] VITALS: BP 128/97; PULSE 83; RESP 18; TEMP 36.8; O2SAT 96; BMI 27.6
--- NOTE | 2024-06-30 18:29 | DI.CT.S_ITS ---
PROCEDURE: CT HEAD/BRAIN WO CON INDICATIONS: head inj on eliquis TECHNIQUE: Noncontrast 4.5 mm thick angled axial sections acquired from the foramen magnum to the vertex, with coronal and sagittal reformats. For radiation dose reduction, the following was used: automated exposure control, adjustment of mA and/or kV according to patient size. COMPARISON: [facility], CT, CT HEAD/BRAIN WO CON, 04/24/2019, 23:31. FINDINGS: Image quality: Diagnostic. CSF spaces: Basal cisterns are patent. No extra-axial fluid collections. Ventricles are normal in size and shape. Brain: No midline shift. No intracranial masses or hemorrhage. Joshi-white matter interface is normal. Skull and face: Calvarium and visualized facial bones are intact, without suspicious lesions. Sinuses: Visualized sinuses and mastoids are clear. IMPRESSION: No acute intracranial pathology. Dictated by: Deepak Foster M.D. on 06/30/2024 at 19:09 Approved by: Deepak Foster M.D. on 06/30/2024 at 19:09
[2024-06-30 19:03] VITALS: BP 117/72; PULSE 74; O2SAT 96
--- NOTE | 2024-06-30 19:16 | ED.HEATRA ---
HPI - Head Injury General Chief complaint: Head Injury Stated complaint: ran into something,on thinners, head injury,nausea Time Seen by Provider: 06/30/24 18:28 Source: patient Mode of arrival: Ambulatory History of Present Illness HPI Narrative: 38-year-old male presents for evaluation of nausea, headache, intermittent blurred vision after head injury that occurred earlier today. Patient ran into a metal bar while working. He fell backwards, landing on his bottom. He was on Eliquis for a DVT. His symptoms persisted this afternoon and so he decided to come in for evaluation. Related Data Home Medications Medication Instructions Recorded Confirmed acetaminophen 500 mg tablet 1,000 mg PO Q4H PRN 06/18/24 06/18/24 (Tylenol Extra Strength) Previous Rx's Medication Instructions Recorded apixaban 5 mg tablet (Eliquis) See Rx Instructions .Route 06/17/24 .COMPLEX #74 tabs gabapentin 600 mg tablet 900 mg (1.5 x 600 mg) PO TID 90 06/18/24 days #405 tabs Allergies Allergy/AdvReac Type Severity Reaction Status Date / Time adhesive tape Allergy Intermediate Rash Verified 06/18/24 15:04 venom-honey bee Allergy Unknown Verified 06/18/24 15:04 [BEE VENOM (HONEY BEE)] Patient History Medical History Chronic bilateral low back pain with bilateral sciatica Encounter for vasectomy counseling History of colonic polyps Colon polyps History of hematemesis History of melena Alina-Barriga tear Hiatal hernia Incisional hernia of anterior abdominal wall without obstruction or gangrene URI (upper respiratory infection) Exposure to COVID-19 virus Insomnia due to medical condition Fractures (~2018) Foot pain (~2019) History of skull fracture History of DVT of lower extremity Right calf pain Surgical History Hx of colonoscopy (06/14/22) Hx of hernia repair (07/20/20) Social History household members: significant other Smoking Status: Current some day smoker alcohol intake: former substance use type: marijuana Smoking Status: Current some day smoker tobacco type: vaping and smokeless tobacco alcohol intake frequency: holidays/special occasions only Exam Initial Vital Signs Initial Vital Signs: Vital Signs Temperature 98.3 F 06/30/24 18:15 Pulse Rate 83 06/30/24 18:15 Respiratory Rate 18 06/30/24 18:15 Blood Pressure 128/97 H 06/30/24 18:15 Pulse Oximetry 96 06/30/24 18:15 Oxygen Delivery Method Room Air 06/30/24 18:15 Const: Awake, alert, no acute distress, nontoxic appearing HEENT: Atraumatic, normocephalic, TM normal bilaterally, PERRLA, EOMI Cardiac: regular rate, regular rhythm RESP: unlabored, conversational without dyspnea Skin: Warm, Dry, intact, no rashes Neuro: AO x3, CN II-XII grossly intact, moves all extremities Course Orders Ordered: ED Orders 06/30/24 18:29 CT head/brain wo con Stat Vital Signs Vital signs: Vital Signs - 8 hr 06/30/24 18:15 06/30/24 19:03 06/30/24 19:03 Temperature 98.3 F Pulse Rate 83 74 Respiratory Rate 18 Blood Pressure 128/97 H 117/72 Pulse Oximetry 96 96 Oxygen Delivery Method Room Air 06/30/24 19:30 06/30/24 19:30 Temperature Pulse Rate 69 Respiratory Rate 17 Blood Pressure 124/81 Pulse Oximetry 96 Oxygen Delivery Method MDM - Head Injury Differential Diagnosis Differential diagnosis: Likely concussion without loss of consciousness, closed head injury and concussion with loss of consciousness Imaging Data CT scan - head: Radiologist's Impression: PROCEDURE: CT HEAD/BRAIN WO CON INDICATIONS: head inj on eliquis TECHNIQUE: Noncontrast 4.5 mm thick angled axial sections acquired from the foramen magnum to the vertex, with coronal and sagittal reformats. For radiation dose reduction, the following was used: automated exposure control, adjustment of mA and/or kV according to patient size. COMPARISON: [facility], CT, CT HEAD/BRAIN WO CON, 04/24/2019, 23:31. FINDINGS: Image quality: Diagnostic. CSF spaces: Basal cisterns are patent. No extra-axial fluid collections. Ventricles are normal in size and shape. Brain: No midline shift. No intracranial masses or hemorrhage. Joshi-white matter interface is normal. Skull and face: Calvarium and visualized facial bones are intact, without suspicious lesions. Sinuses: Visualized sinuses and mastoids are clear. IMPRESSION: No acute intracranial pathology. Dictated by: Deepak Foster M.D. on 06/30/2024 at 19:09 Approved by: Deepak Foster M.D. on 06/30/2024 at 19:09 [facility] Narrative Medical decision making narrative: Well-appearing patient with minor head injury. Ordinarily patient would not need head CT for minor injury, however he was on Eliquis, and so a noncontrast brain CT ordered, which was negative for acute findings. Patient counseled on closed head injury supportive care measures at home. Significant other at bedside in agreement with the plan. Note for work provided. Discharge Plan Departure Patient Disposition: Home Clinical Impression: Closed head injury Instructions: Concussion, DI for Closed Head Injury Activity Restrictions/Additional Instructions: Take Tylenol as needed for headache. Avoid bright lights, loud noises, screen time including your phone or the TV. Drink lots of fluids and get lots of rest. Prescriptions: No Action acetaminophen [Tylenol Extra Strength] 500 mg tablet 1,000 mg PO Q4H PRN gabapentin 600 mg tablet 900 mg PO TID 90 Days Qty: 405 0RF Eliquis 5 mg tablet See Rx Instructions .ROUTE .COMPLEX Qty: 74 0RF Rx Instructions: Take 10 mg twice a day for 10 days and then 5 mg twice a day Referrals: Jose Leung DO [Primary Care Provider] - Stand Alone Forms: Patient Portal/API/Survey, Work Release Note
[2024-06-30 19:30] VITALS: BP 124/81; PULSE 69; RESP 17; O2SAT 96
== END 2024-06-30 19:59 | disposition home or self-care (01) ==
PROVIDERS: Emergency Provider Emergency Medicine; PCP Family Medicine; Referring Provider Family Medicine
DX: S09.90XA Unspecified injury of head, initial encounter (principal); H53.8 Other visual disturbances; R51.9 Headache, unspecified; R11.0 Nausea; Z79.01 Long term (current) use of anticoagulants; W18.09XA Striking against other object with subsequent fall, initial encounter
CPT/HCPCS: 70450; 99281; 99284

== ENCOUNTER 2024-07-05 08:42 | Emergency (ER) | payer SELFPAY ==
[2022-12-12 16:48] VITALS: PULSE 79; RESP 16; O2SAT 99; BMI 25.5
--- NOTE | 2024-07-05 09:02 | ED_ITS ---
HPI - Male Genitourinary General Chief complaint: Urogenital-Male Stated complaint: blood in urine, on blood thinners Time Seen by Provider: 07/05/24 08:49 History of Present Illness HPI Narrative: 38-year-old male with history of DVT on Eliquis presents for 1 day of leg pain, blood in his urine. Patient was seen 5 days prior for closed head injury. He states that he has been in his usual state of health until yesterday, when he began to experience symptoms. He states that his legs ache and he feels sore. Reports that urine is dark red. No clots. Associated penile pain with urination. Denies testicular pain. Works at [employer], denies change in work habits recent uusually strenuous exercise or activities. Related Data Home Medications Medication Instructions Recorded Confirmed acetaminophen 500 mg tablet 1,000 mg PO Q4H PRN 06/18/24 06/18/24 (Tylenol Extra Strength) Previous Rx's Medication Instructions Recorded apixaban 5 mg tablet (Eliquis) See Rx Instructions .Route 06/17/24 .COMPLEX #74 tabs gabapentin 600 mg tablet 900 mg (1.5 x 600 mg) PO TID 90 06/18/24 days #405 tabs Allergies Allergy/AdvReac Type Severity Reaction Status Date / Time adhesive tape Allergy Intermediate Rash Verified 06/18/24 15:04 venom-honey bee Allergy Unknown Verified 06/18/24 15:04 [BEE VENOM (HONEY BEE)] Patient History Medical History Chronic bilateral low back pain with bilateral sciatica Encounter for vasectomy counseling History of colonic polyps Colon polyps History of hematemesis History of melena Alina-Barriga tear Hiatal hernia Incisional hernia of anterior abdominal wall without obstruction or gangrene URI (upper respiratory infection) Exposure to COVID-19 virus Insomnia due to medical condition Fractures (~2018) Foot pain (~2019) History of skull fracture History of DVT of lower extremity Right calf pain Surgical History Hx of colonoscopy (06/14/22) Hx of hernia repair (07/20/20) Social History household members: significant other Smoking Status: Current some day smoker alcohol intake: former substance use type: marijuana Smoking Status: Current some day smoker tobacco type: vaping and smokeless tobacco alcohol intake frequency: holidays/special occasions only Exam Initial Vital Signs Initial Vital Signs: Vital Signs Temperature 98.8 F 07/05/24 09:04 Pulse Rate 72 07/05/24 09:04 Respiratory Rate 18 07/05/24 09:04 Blood Pressure 145/65 H 07/05/24 09:04 Pulse Oximetry 95 07/05/24 09:04 Oxygen Delivery Method Room Air 07/05/24 09:04 Const: Awake, alert, no acute distress, nontoxic appearing Cardiac: regular rate, regular rhythm RESP: unlabored, conversational without dyspnea GI: Soft, nontender, nondistended : Personnel Psychologist present, external genitalia normal, no gross blood, testicles normal Skin: Warm, Dry, intact, no rashes Neuro: AO x3, CN II-XII grossly intact, moves all extremities Course Orders Ordered: ED Orders 07/05/24 09:21 CT abdomen pelvis w con Stat 07/05/24 09:27 UA Complete [Urinalysis and Microscopic] Stat Urine Culture Stat 07/05/24 09:38 CBC Auto Diff [Complete Blood Count AUTO DIFF] Stat CK [Creatine Kinase] Stat CMP [Comprehensive Metabolic Panel] Stat Lactate (Lactic Acid) Stat Vital Signs Vital signs: Vital Signs - 8 hr 07/05/24 09:04 07/05/24 12:14 Temperature 98.8 F Pulse Rate 72 59 L Respiratory Rate 18 14 Blood Pressure 145/65 H 145/67 H Pulse Oximetry 95 95 Oxygen Delivery Method Room Air Room Air MDM - Male Genitourinary Lab Data 07/05/24 09:38 07/05/24 09:38 Labs: Lab Results 07/05/24 07/05/24 Range/Units 09:27 09:38 WBC 7.4 (4.5-11.0) X10^3/uL RBC 4.83 (4.5-5.9) X10^6/uL Hgb 14.3 (13.5-17.5) g/dL Hct 41.9 (41-53) % MCV 86.7 (80-100) fL MCH 29.6 (26-34) PG MCHC 34.2 (30-36) % RDW 13.1 (11.6-14.8) % Plt Count 205 (150-400) X10^3/uL Neut % (Auto) 62.8 (50-75) % Lymph % (Auto) 25.8 (25-40) % [place] % (Auto) 8.6 (3-14) % Eos % (Auto) 2.6 (2-4) % Baso % (Auto) 0.2 (0-2) % Neut # (Auto) 4600 (8130-2913) /uL Lymph # (Auto) 1900 (1983-6823) /uL [place] # (Auto) 600 (0-900) /uL Eos # (Auto) 200 (0-450) /uL Baso # (Auto) 0 (0-100) /uL Sodium 139 (137-145) mmol/L Potassium 4.2 (3.4-5.1) mmol/L Chloride 104 (98-107) mmol/L Carbon Dioxide 26 (22-32) mmol/L BUN 20 (9-20) mg/dL Creatinine 0.82 (0.66-1.25) mg/dL Estimated GFR > 60 (>60) mL/min BUN/Creatinine Ratio 24.4 H (6-22) Glucose 106 H (70-100) mg/dL Lactate 0.9 (0.7-2.1) mmol/L Calcium 9.1 (8.4-10.2) mg/dL Total Bilirubin 0.9 (0.2-1.3) mg/dL AST 33 (17-59) IU/L ALT 48 (<50) IU/L Alkaline Phosphatase 90 (38-126) U/L Total Creatine Kinase 73 (55-170) U/L Total Protein 7.7 (6.3-8.2) g/dL Albumin 4.6 (3.5-5.0) g/dL Globulin 3.1 (1.7-4.1) g/dL Albumin/Globulin Ratio 1.5 (1.0-2.8) Urine Color Yellow Urine Appearance Clear Urine pH 5.5 (4.5-8.0) Ur Specific [place] 1.020 (1.000-1.035) Urine Protein Negative (Negative) Urine Glucose (UA) Negative (Negative) g/dL Urine Ketones Negative (NEGATIVE) Urine Occult Blood Trace-intact (Negative) Urine Nitrate Negative (Negative) Urine Bilirubin Negative (NEGATIVE) Urine Urobilinogen 0.2 (0.2) E.U./dL Ur Leukocyte Esterase Trace H (NEGATIVE) Urine RBC 1-5/hpf (0-5/HPF) Urine WBC 1-5/hpf (0-5/HPF) Ur Squamous Epith Cells 0-1 /hpf (0-5/HPF) Urine Bacteria Occasional (0-1) (None) Ur Culture Indicated? Specimen cultured Vol Urine Centrifuged 10ml (spun) Imaging Data CT scan - abdomen/pelvis: Radiologist's Impression: ROCEDURE: CT ABDOMEN PELVIS W CON INDICATIONS: GROSS HEMATURIA TECHNIQUE: After the administration of intravenous contrast, axial sections acquired from the lung bases to the pubic symphysis. Coronal and sagittal reformats were performed. For radiation dose reduction, the following was used: automated exposure control, adjustment of mA and/or kV according to patient size. COMPARISON: [facility], CT, CT ABDOMEN PELVIS W CON, 12/08/2022, 22:18. FINDINGS: Image quality: Diagnostic. Lower Chest: There is a small to moderate hiatal hernia. ABDOMEN: Liver: No solid mass. Gallbladder: No radiopaque gallstones or wall thickening. Biliary ducts: No biliary dilation. Pancreas: No ductal dilation. Spleen: Size is within normal limits. Adrenal Glands: No adrenal nodules. Kidneys and Ureters: No hydronephrosis. No solid mass. No complex renal cystic lesion which requires follow up. There is a nonobstructing left-sided kidney stone that measures up to 4 mm, as on series 2, image 45. Stomach and Bowel: Normal colonic caliber, without significant wall thickening. Peritoneum: No abnormal intraperitoneal fluid. No free air. Ventral Wall: No significant ventral hernia. Abdominal Nodes: No retroperitoneal or mesenteric adenopathy by size criteria. Vessels: Aorta and inferior vena cava are normal in size. PELVIS: Pelvic Organs: Unremarkable. Bladder: No bladder wall thickening, accounting for underdistention. Pelvic Nodes: No enlarged lymph nodes. Miscellaneous: No inguinal hernias are seen. Bones: No aggressive osseous abnormality. IMPRESSION: Nonobstructing left-sided kidney stone. No additional cause of hematuria can be seen. Additional findings: Small to moderate hiatal hernia Dictated by: Teja Tony M.D. on 07/05/2024 at 9:36 Approved by: Teja Tony M.D. on 07/05/2024 at 9:38 MDM Narrative Medical decision making narrative: Patient on blood thinners who has gross blood in his urine at home. Exam in the ER unremarkable. Patient was on Eliquis. Labs, CT imaging ordered. Laboratory work reviewed, no significant abnormalities identified. Hemoglobin and creatinine within normal limits. Urinalysis with trace blood, no signs of infection. CT imaging shows nonobstructing left-sided renal stone. Since patient has been in the emergency department he was use the restroom several times without pain. Question if patient possibly passed a kidney stone as source of blood. Otherwise no obvious explanation for patient's symptoms present at this time. Lab and imaging findings discussed with the patient and at bedside. He was counseled to continue his current medications as prescribed. If he has continued symptoms he should follow up with Urology. ED return precautions discussed. Discharge Plan Departure Patient Disposition: Home Clinical Impression: Hematuria Instructions: DI for Hematuria Activity Restrictions/Additional Instructions: Your laboratory work today is normal. There was a stone inside of the left kidney, however it was not in a position to cause pain or other symptoms. You may have passed a kidney stone as the cause of your pain and symptoms, however if you have already passed the stone it would no longer be visible. Continue to take all of your medications as prescribed. Follow up with your primary care doctor. If you notice continued blood in your urine you should follow up with a urologist, a referral number has been provided. Prescriptions: No Action acetaminophen [Tylenol Extra Strength] 500 mg tablet 1,000 mg PO Q4H PRN gabapentin 600 mg tablet 900 mg PO TID 90 Days Qty: 405 0RF Eliquis 5 mg tablet See Rx Instructions .ROUTE .COMPLEX Qty: 74 0RF Rx Instructions: Take 10 mg twice a day for 10 days and then 5 mg twice a day Referrals: Immanuel Soto MD [Physician] - Jose Leung DO [Primary Care Provider] - Stand Alone Forms: Patient Portal/API/Survey
[2024-07-05 09:04] VITALS: BP 145/65; PULSE 72; RESP 18; TEMP 37.1; O2SAT 95; BMI 27.6
--- NOTE | 2024-07-05 09:21 | DI.CT.S_ITS ---
PROCEDURE: CT ABDOMEN PELVIS W CON INDICATIONS: GROSS HEMATURIA TECHNIQUE: After the administration of intravenous contrast, axial sections acquired from the lung bases to the pubic symphysis. Coronal and sagittal reformats were performed. For radiation dose reduction, the following was used: automated exposure control, adjustment of mA and/or kV according to patient size. COMPARISON: [facility], CT, CT ABDOMEN PELVIS W CON, 12/08/2022, 22:18. FINDINGS: Image quality: Diagnostic. Lower Chest: There is a small to moderate hiatal hernia. ABDOMEN: Liver: No solid mass. Gallbladder: No radiopaque gallstones or wall thickening. Biliary ducts: No biliary dilation. Pancreas: No ductal dilation. Spleen: Size is within normal limits. Adrenal Glands: No adrenal nodules. Kidneys and Ureters: No hydronephrosis. No solid mass. No complex renal cystic lesion which requires follow up. There is a nonobstructing left-sided kidney stone that measures up to 4 mm, as on series 2, image 45. Stomach and Bowel: Normal colonic caliber, without significant wall thickening. Peritoneum: No abnormal intraperitoneal fluid. No free air. Ventral Wall: No significant ventral hernia. Abdominal Nodes: No retroperitoneal or mesenteric adenopathy by size criteria. Vessels: Aorta and inferior vena cava are normal in size. PELVIS: Pelvic Organs: Unremarkable. Bladder: No bladder wall thickening, accounting for underdistention. Pelvic Nodes: No enlarged lymph nodes. Miscellaneous: No inguinal hernias are seen. Bones: No aggressive osseous abnormality. IMPRESSION: Nonobstructing left-sided kidney stone. No additional cause of hematuria can be seen. Additional findings: Small to moderate hiatal hernia Dictated by: Teja Tony M.D. on 07/05/2024 at 9:36 Approved by: Teja Tony M.D. on 07/05/2024 at 9:38
[2024-07-05 09:41] LABS: Appearance Urine UA CLEAR; Bilirubin Urine UA NEGATIVE (NEGATIVE); Color Urine UA YELLOW; Glucose Urine UA NEGATIVE (Negative); Ketones Urine UA NEGATIVE (NEGATIVE); Leukocyte Esterase Urine UA TRACE (NEGATIVE); Nitrite Urine UA NEGATIVE (Negative); Occult Blood Urine UA TRACE-INTACT (Negative); Protein Urine UA NEGATIVE (Negative); Urobilinogen Urine UA 0.2 E.U./dL (0.2); pH Urine UA 5.5 (4.5-8.0)
[2024-07-05 09:46] LABS: Add Manual Diff / Slide Review NO; Basophils Absolute Auto 0 /uL (0-100); Basophils Percent Auto 0.2 % (0-2); Eosinophils Absolute Auto 200 /uL (0-450); Eosinophils Percent Auto 2.6 % (2-4); Hematocrit 41.9 % (41-53); Hemoglobin 14.3 g/dL (13.5-17.5); Lymphocytes Absolute Auto 1900 /uL (1100-4500); Lymphocytes Percent Auto 25.8 % (25-40); Mean Corpuscular HGB Conc 34.2 % (30-36); Mean Corpuscular Hemoglobin 29.6 PG (26-34); Mean Corpuscular Volume 86.7 fL (80-100); Monocytes Absolute Auto 600 /uL (0-900); Monocytes Percent Auto 8.6 % (3-14); Neutrophils Absolute Auto 4600 /uL (1500-7000); Neutrophils Percent Auto 62.8 % (50-75); Platelet Count 205 X10^3/uL (150-400); Red Blood Cell Count 4.83 X10^6/uL (4.5-5.9); Red Cell Distribution Width 13.1 % (11.6-14.8); White Blood Cell Count 7.4 X10^3/uL (4.5-11.0)
[2024-07-05 09:51] LABS: RBC Urine 1-5/HPF (0-5/HPF); Urine Volume 10mL (spun); WBC Urine 1-5/HPF (0-5/HPF)
[2024-07-05 09:52] LABS: Bacteria Urine Occasional (0-1); Culture Indicated Urine Specimen Cultured; Squamous Epithelial Cell Urine 0-1 /HPF (0-5/HPF)
[2024-07-05 10:02] LABS: Alanine Aminotransferase 48 IU/L (<50); Albumin 4.6 g/dL (3.5-5.0); Albumin Globulin Ratio 1.5 (1.0-2.8); Alkaline Phosphatase 90 U/L (38-126); Aspartate Aminotransferase 33 IU/L (17-59); BUN Creatinine Ratio 24.4 (6-22); Bilirubin Total 0.9 mg/dL (0.2-1.3); Blood Urea Nitrogen 20 mg/dL (9-20); Calcium 9.1 mg/dL (8.4-10.2); Carbon Dioxide 26 mmol/L (22-32); Chloride 104 mmol/L (98-107); Creatine Kinase 73 U/L (55-170); Estimated Glomerular Filt Rate > 60 mL/min (>60); Globulin 3.1 g/dL (1.7-4.1); Glucose 106 mg/dL (70-100); HEMOLYSIS < 15 (0-50); Lactate (Lactic Acid) 0.9 mmol/L (0.7-2.1); Potassium 4.2 mmol/L (3.4-5.1); Sodium 139 mmol/L (137-145); Total Protein 7.7 g/dL (6.3-8.2)
[2024-07-05 12:14] VITALS: BP 145/67; PULSE 59; RESP 14; O2SAT 95
== END 2024-07-05 12:16 | disposition home or self-care (01) ==
PROVIDERS: Emergency Provider Emergency Medicine; PCP Family Medicine
DX: R31.0 Gross hematuria (principal); Z79.01 Long term (current) use of anticoagulants; N20.0 Calculus of kidney
CPT/HCPCS: 36415; 74177; 80053; 81001; 82550; 83605; 85025; 87086; 99284; Q9967

== ENCOUNTER 2024-07-26 10:05 | Emergency (ER) | payer BC, SELFPAY ==
[2022-12-12 16:48] VITALS: PULSE 79; RESP 16; O2SAT 99; BMI 25.5
[2024-07-26 10:35] VITALS: BP 114/3; PULSE 84; RESP 18; TEMP 36.7; O2SAT 94; BMI 28.1
== END 2024-07-26 11:21 | disposition left against medical advice (07) ==
PROVIDERS: Emergency Provider Emergency Medicine; PCP Family Medicine
DX: K64.9 Unspecified hemorrhoids (principal)
CPT/HCPCS: 99281

== ENCOUNTER 2024-07-27 18:50 | Emergency (ER) | payer BC, SELFPAY ==
[2022-12-12 16:48] VITALS: PULSE 79; RESP 16; O2SAT 99; BMI 25.5
[2024-07-27] VITALS (7 sets, daily range): BP systolic 118–150; BP diastolic 67–81; PULSE 70–83; RESP 16–18; TEMP 36.2; O2SAT 94–97; BMI 28.1
[2024-07-27 20:18] LABS: Add Manual Diff / Slide Review NO; Basophils Absolute Auto 0 /uL (0-100); Basophils Percent Auto 0.4 % (0-2); Eosinophils Absolute Auto 200 /uL (0-450); Eosinophils Percent Auto 3.5 % (2-4); Hematocrit 39.9 % (41-53); Hemoglobin 13.7 g/dL (13.5-17.5); Lymphocytes Absolute Auto 1900 /uL (1100-4500); Lymphocytes Percent Auto 36.7 % (25-40); Mean Corpuscular HGB Conc 34.4 % (30-36); Monocytes Absolute Auto 600 /uL (0-900); Monocytes Percent Auto 10.8 % (3-14); Neutrophils Absolute Auto 2500 /uL (1500-7000); Neutrophils Percent Auto 48.6 % (50-75); Platelet Count 195 X10^3/uL (150-400); Red Blood Cell Count 4.58 X10^6/uL (4.5-5.9); Red Cell Distribution Width 13.1 % (11.6-14.8); White Blood Cell Count 5.1 X10^3/uL (4.5-11.0)
[2024-07-27 20:24] LABS: BUN Creatinine Ratio 26.7 (6-22); Blood Urea Nitrogen 20 mg/dL (9-20); Carbon Dioxide 26 mmol/L (22-32); Chloride 106 mmol/L (98-107); Estimated Glomerular Filt Rate > 60 mL/min (>60); Glucose 147 mg/dL (70-100); HEMOLYSIS 23 (0-50); Potassium 3.9 mmol/L (3.4-5.1); Sodium 141 mmol/L (137-145)
--- NOTE | 2024-07-27 21:18 | ED_ITS ---
HPI - GI Bleed General Chief complaint: GI Bleed Stated complaint: annual fistula, on blood thinners Time Seen by Provider: 07/27/24 19:58 History of Present Illness HPI Narrative: 38-year-old male with history of blood clots on Eliquis anticoagulation, prior perianal abscess problems, recent perianal fullness, using Sitz baths at home, Saturday had pus and blood on his sheets, Sitz baths since that time, still having some drainage. No fevers or chills. No painful defecation. No known history of Crohn's disease. Related Data Home Medications Medication Instructions Recorded Confirmed acetaminophen 500 mg tablet 1,000 mg PO Q4H PRN 06/18/24 06/18/24 (Tylenol Extra Strength) Previous Rx's Medication Instructions Recorded gabapentin 600 mg tablet 900 mg (1.5 x 600 mg) PO TID 90 06/18/24 days #405 tabs apixaban 5 mg tablet (Eliquis) See Rx Instructions .Route 07/08/24 .COMPLEX #74 tabs Allergies Allergy/AdvReac Type Severity Reaction Status Date / Time adhesive tape Allergy Intermediate Rash Verified 06/18/24 15:04 venom-honey bee Allergy Unknown Verified 06/18/24 15:04 [BEE VENOM (HONEY BEE)] Patient History Medical History Chronic bilateral low back pain with bilateral sciatica Encounter for vasectomy counseling History of colonic polyps Colon polyps History of hematemesis History of melena Alina-Barriga tear Hiatal hernia Incisional hernia of anterior abdominal wall without obstruction or gangrene URI (upper respiratory infection) Exposure to COVID-19 virus Insomnia due to medical condition Fractures (~2018) Foot pain (~2018) History of skull fracture History of DVT of lower extremity Right calf pain Surgical History Hx of colonoscopy (06/14/22) Hx of hernia repair (07/20/20) Social History household members: significant other Smoking Status: Current some day smoker alcohol intake: former substance use type: marijuana Smoking Status: Current some day smoker tobacco type: vaping and smokeless tobacco alcohol intake frequency: holidays/special occasions only Exam Narrative Exam Narrative: GENERAL: Well-developed patient, in mild distress. HEAD: Atraumatic. Normocephalic. EYES: Pupils equal round and reactive. Extraocular motions intact. No scleral icterus. No injection or drainage. ENT: Nose without bleeding, purulent drainage. Throat without erythema, tonsillar hypertrophy or exudate. Airway patent. NECK: Trachea midline. Non tender CARDIOVASCULAR: Regular rate and rhythm without murmurs, gallops, or rubs. RESPIRATORY: Clear to auscultation. Breath sounds equal bilaterally. No wheezes, rales, or rhonchi. GASTROINTESTINAL: Abdomen soft, non-tender, nondistended. Rectal exam: External inspection shows skin tags, no obvious bleeding, digital exam perianal without any areas of induration or tenderness. recently saw bleeding area, says it looks like it has resolved. No verrucal warty ski tag or flat skin changes. No expressible fluid or blood. No hemorrhoids obvious. EXTREMITIES: No edema or joint tenderness. BACK: Nontender without deformity or crepitance. No flank tenderness. NEURO: AOx3. Motor functions grossly nonfocal SKIN: No rash or erythema of visible areas Initial Vital Signs Initial Vital Signs: Vital Signs Temperature 97.2 F L 07/27/24 19:00 Pulse Rate 81 07/27/24 19:00 Respiratory Rate 16 07/27/24 19:00 Blood Pressure 150/81 H 07/27/24 19:00 Pulse Oximetry 95 07/27/24 19:00 Oxygen Delivery Method Room Air 07/27/24 19:00 Course Orders Ordered: ED Orders 07/27/24 20:00 BMP [Basic Metabolic Panel] Stat Complete Blood Count AUTO DIFF Stat Type and Screen Stat Vital Signs Vital signs: Vital Signs - 8 hr 07/27/24 21:00 07/27/24 21:00 07/27/24 21:30 Pulse Rate 70 71 Respiratory Rate Blood Pressure 119/68 Pulse Oximetry 97 94 Oxygen Delivery Method Room Air 07/27/24 21:30 07/27/24 21:51 Pulse Rate 72 Respiratory Rate 18 Blood Pressure 121/67 121/67 Pulse Oximetry 96 Oxygen Delivery Method Room Air MDM - GI Bleed Lab Data Attestation: I reviewed the patient's lab results. Lab results narrative: White blood cell count 5100, hemoglobin 13.7, platelets adequate. Basic metabolic panel unremarkable. Liver functions unremarkable. 07/27/24 20:00 07/27/24 20:00 Labs: Lab Results 07/27/24 Range/Units 20:00 WBC 5.1 (4.5-11.0) X10^3/uL RBC 4.58 (4.5-5.9) X10^6/uL Hgb 13.7 (13.5-17.5) g/dL Hct 39.9 L (41-53) % MCV 87.0 (80-100) fL MCH 30.0 (26-34) PG MCHC 34.4 (30-36) % RDW 13.1 (11.6-14.8) % Plt Count 195 (150-400) X10^3/uL Neut % (Auto) 48.6 L (50-75) % Lymph % (Auto) 36.7 (25-40) % [place] % (Auto) 10.8 (3-14) % Eos % (Auto) 3.5 (2-4) % Baso % (Auto) 0.4 (0-2) % Neut # (Auto) 2500 (2969-3470) /uL Lymph # (Auto) 1900 (1072-8235) /uL [place] # (Auto) 600 (0-900) /uL Eos # (Auto) 200 (0-450) /uL Baso # (Auto) 0 (0-100) /uL Sodium 141 (137-145) mmol/L Potassium 3.9 (3.4-5.1) mmol/L Chloride 106 (98-107) mmol/L Carbon Dioxide 26 (22-32) mmol/L BUN 20 (9-20) mg/dL Creatinine 0.75 (0.66-1.25) mg/dL Estimated GFR > 60 (>60) mL/min BUN/Creatinine Ratio 26.7 H (6-22) Glucose 147 H (70-100) mg/dL Calcium 9.0 (8.4-10.2) mg/dL Blood Type A Negative Antibody Screen Negative MDM Narrative Medical decision making narrative: 38-year-old male with suspected lower GI bleeding per triage notes, history of blood clots taking Eliquis anticoagulation, history of perianal abscess, had perianal discomfort last 3 days, Sitz baths at home, Saturday night had rupture of fluid with some blood in bed sheets, Sitz baths show continuing oozing and some blood. No fevers or chills. No painful defecation. No nausea or vomiting. Afebrile, sirs screen negative. Anterior abdominal exam unremarkable. Perianal external inspection and digital palpation without obvious lesion or induration, no expressible fluid. Likely recently spontaneously draining perianal abscess by history. Seems resolved. No antibiotics for now. Patient/spouse agreeable with this plan. Continued Sitz baths as needed. Recheck as needed. Discharge Plan Departure Patient Disposition: Home Clinical Impression: Perianal abscess Activity Restrictions/Additional Instructions: Suspected spontaneous rupture of recurrent perianal abscess. History of prior perianal abscess, using Sitz baths, on Saturday had rupture of fluid with some blood, also taking chronic anticoagulation due to previous deep vein blood clots problem. On examination now there seems to be no abscess cavity, induration, mass effect. You might have already drained the fluid collection. We will hold off on any imaging or further treatment. Hold off on antibiotics for now. Recheck with your regular provider if symptoms persist next couple of days. Return earlier to this/nearest emergency department for any change worsening symptoms or any concerns prior. Continue your regular medications for now. Prescriptions: No Action Eliquis 5 mg tablet See Rx Instructions .ROUTE .COMPLEX Qty: 74 0RF Rx Instructions: Take 10 mg twice a day for 10 days and then 5 mg twice a day acetaminophen [Tylenol Extra Strength] 500 mg tablet 1,000 mg PO Q4H PRN gabapentin 600 mg tablet 900 mg PO TID 90 Days Qty: 405 0RF Referrals: Jose Leung DO [Primary Care Provider] - Stand Alone Forms: Patient Portal/API/Survey
== END 2024-07-27 21:51 | disposition home or self-care (01) ==
PROVIDERS: Emergency Provider Emergency Medicine; PCP Family Medicine
DX: K61.0 Anal abscess (principal)
CPT/HCPCS: 36415; 80048; 85025; 86850; 86900; 86901; 99283

== ENCOUNTER → 2024-07-30 09:28 | Outpatient (CLI) | payer BC, SELFPAY ==
[2022-12-12 16:48] VITALS: PULSE 79; RESP 16; O2SAT 99; BMI 25.5
[2024-07-30 10:14] LABS: Influenza A - CEPHEID Flu A POSITIVE (NEGATIVE); Influenza B - CEPHEID Flu B NEGATIVE (NEGATIVE); Respiratory Syncytial Virus Negative (Negative)
[2024-07-30 10:18] LABS: COVID-19 CEPHEID 4-PLEX PCR Negative (Negative)
== END ==
PROVIDERS: PCP Family Medicine; Visit Provider Student in an Organized Health Care Education/Training Program
DX: Z20.828 Contact with and (suspected) exposure to other viral communicable diseases (principal)
CPT/HCPCS: 0241U

== ENCOUNTER → 2025-04-09 09:41 | Outpatient (CLI) | payer BC, SELFPAY ==
[2022-12-12 16:48] VITALS: PULSE 79; RESP 16; O2SAT 99; BMI 25.5
--- NOTE | 2025-04-09 09:46 | DI.RAD.S_ITS ---
PROCEDURE: XR FINGER RT MIN 2V INDICATIONS: Rule out fracture distal thumb TECHNIQUE: AP hand, 2 views of the 1st finger(s) acquired. COMPARISON: None. FINDINGS: Bones: Minimally displaced fracture of the 1st distal phalanx tuft. No suspicious bony lesions. Soft tissues: No suspicious soft tissue calcifications. IMPRESSION: Minimally displaced fracture of the 1st distal phalanx tuft Dictated by: Mega Epps M.D. on 04/10/2025 at 14:16 Approved by: Mega Epps M.D. on 04/10/2025 at 14:17
== END ==
PROVIDERS: PCP Family Medicine; Referring Provider Family Medicine; Visit Provider Chiropractor
DX: S62.524A Nondisplaced fracture of distal phalanx of right thumb, initial encounter for closed fracture (principal); S60.011A Contusion of right thumb without damage to nail, initial encounter; X58.XXXA Exposure to other specified factors, initial encounter
CPT/HCPCS: 73140